=== PATIENT | male | born 1970 | race Caucasian/White ===

== ENCOUNTER 2021-11-18 18:20 | Inpatient (IN) | payer MEDICAID, SELFPAY ==
[2021-11-18 18:20] VITALS: BP 125/87; PULSE 93; RESP 14; TEMP 36.3; O2SAT 99; BMI 22.1
--- NOTE | 2021-11-18 18:44 | CT_ITS ---
We are attempting to reach an attending provider to discuss findings. An addendum with communication details will be sent when the communication is complete. INDICATION: ruq abd pain and weight loss EXAMINATION: CT ABDOMEN AND PELVIS WITH CONTRAST - CT Abdomen And Pelvis W/ Contrast Injection TECHNIQUE: Helically acquired images were obtained of the abdomen and pelvis following IV contrast. A radiation dose optimization technique was used for this scan. IV Contrast dosage and agent: 100 mL of ISOVUE-300 Oral contrast: None. COMPARISON: Right upper quadrant ultrasound from 09/17/2012. FINDINGS: LOWER CHEST: Lung bases are clear. No cardiomegaly or pericardial effusion. LIVER: Abnormal decreased density in the hilar region of the left hepatic lobe may represent focal fatty infiltration. More typical location for focal fatty infiltration in segment 4 liver is present. There appear to be traversing vessels making mass lesion less likely however further evaluation with right upper quadrant ultrasound is recommended. GALLBLADDER AND BILIARY TREE: No calcified gallstones. No gallbladder distension or wall edema. No definite intrahepatic biliary ductal dilation however abnormal low density left hepatic lobe in the region of the proximal bile ducts. PANCREAS: No focal cystic or solid mass. SPLEEN: Normal size without focal cystic or solid mass. ADRENAL GLANDS: No nodules. KIDNEYS, URETERS and BLADDER: Normal renal size and position. No mass. No hydronephrosis. Bladder is unremarkable. PERITONEUM: No ascites or free air. No other fluid collection. BOWEL: Stomach is abnormally distended as is the first portion of the duodenum with no obstructing mass visible. No surrounding inflammatory changes. More distal small bowel is collapsed. Small bowel loops are clustered in the right mid abdomen, upper quadrant region. No evidence of vascular congestion. LYMPH NODES: No enlarged mesenteric or retroperitoneal lymph nodes. VESSELS: Aorta is non-dilated. Right superior mesenteric vein lateralized position to the right of superior mesenteric artery. REPRODUCTIVE ORGANS: Is normal size prostate gland with calcifications noted. ABDOMINAL WALL: No discrete abdominal or pelvic wall hernia. BONES: No lytic or blastic abnormality. CT/Abdomen/Pelvis W IV Cont ONLY IMPRESSION: Distended stomach and proximal duodenum and abnormally clustered bowel loops in the right upper quadrant region as well as lateralization of the superior mesenteric artery suspicious for possible internal hernia; possible right paraduodenal hernia. Surgical consultation recommended. Area of decreased density in the periphery of the left hepatic lobe most likely representing fatty infiltration. Correlation with ultrasound is recommended to exclude mass lesion. Electronically Signed: Mario Lawson DO at 20:40 EDT ,
--- NOTE | 2021-11-18 18:45 | ED.VIS.GI ---
HPI HPI - GI History of Present Illness Chief Complaint: Abd Pain Informant: patient Abdominal Pain/Flank Pain Onset: Month(s) Context: Gradual Onset Timing: Intermittent Location: RUQ Current Severity: Mild Maximum Severity: Mild Worsened by: Food Relieved by: Nothing Nausea/Vomiting/Emesis GI Symptom: Positive for Nausea and Vomiting Onset: Weeks Severity: Mild Diarrhea/Melena/Hematochezia GI Symptom: Positive for Diarrhea; Negative for Melena or Hematochezia Onset: Days Stool Quality: Positive for Loose Severity: Mild Associated Symptoms Associated Symptoms: Negative for Dysuria, Frequency, Hematuria or Urgency Narrative Narrative: 16-year-old male no seen past medical history. Prior appendectomy years ago. Since her last 2 months he has had abdominal pain. Primarily right upper quadrant when he eats. He gets bloated. He is nausea vomiting. Last few days he is also had some mild diarrhea. No melena. No hematemesis. No fever. No dysuria. States he is also had a 30 pound weight loss. His sisters both had to gallbladders out around this age. He has had no significant work-up for it he has a pending outpatient CAT scan at another facility. Prior similar symptoms: Yes Recent Illness/Hospitalization: No PFSH PFSH Medical History no medical history no medical history Home Medications acetaminophen 500 mg capsule 1,000 mg PO Q6H PRN Pain 11/18/21 [History Last Taken Unknown] polyethylene glycol 3350 17 gram oral powder packet (Miralax) 17 g PO DAILY 11/18/21 [History Last Taken Unknown] Allergy/AdvReac Type Severity Reaction Status Date / Time No Known Allergies Allergy Verified 11/18/21 18:22 Surgical History Hx of appendectomy Social History Smoking Status: Former smoker ROS ROS ED ROS Narrative Nausea, vomiting, diarrhea, abdominal pain and weight loss. Review of Systems ROS Unobtainable: Denies due to encephalopathy Constitutional Constitutional ED: Denies chills ENT ENT ED: Denies ear pain Cardiovascular Cardiovascular: Denies chest pain Respiratory/Chest Respiratory/Chest: Denies cough Gastrointestinal Gastrointestinal: Reports abdominal pain, diarrhea, nausea and vomiting; Denies constipation or melena Genitourinary Genitourinary ED: Denies dysuria or hematuria Musculoskeletal Musculoskeletal: Denies arthralgias Integumentary Denies abscess Neurologic Neurologic: Denies headache(s) Psychiatric Psychiatric: Denies anxiety Endocrine Endocrinology: Denies polydipsia Hematologic/Lymphatic Hematologic/Lymphatic: Denies easy bleeding Allergic/Immunologic Allergic/Immunologic ED: Denies mouth swelling EXAM Physical Exam Narrative Exam Narrative: 51-year-old male no acute distress vital signs stable afebrile. HEENT exam unremarkable. Neck nontender. Lungs are clear. Heart regular rhythm no murmur. Abdomen soft nondistended normal bowel sounds no peritoneal signs. No CVA tenderness. No hernia or mass. No distention. Moving all 4 extremities. Back nontender. Neurologically is awake alert. Benign exam. Const Vital Signs: 11/18/21 18:20 11/18/21 21:08 Temperature 97.3 F L Temperature Source Temporal Pulse Rate 93 73 Respiratory Rate 14 16 Blood Pressure 125/87 H 104/70 Blood Pressure Mean 99 81 Pulse Ox 99 98 Oxygen Delivery Method Room Air Room Air Positive well nourished and well developed; Negative for obese, cachectic, contractures or unkempt General Appearance ED: well developed; Negative for unkempt, cachectic, contractures or pallor Nutritional Appearance: Negative for cachectic or obese HEENT Reports moist mucous membranes normocephalic and atraumatic; Negative for trauma or tenderness Eyes PERRL and EOMs intact bilaterally General Eye ED: Negative for pale conjunctiva or scleral icterus Neck no lymphadenopathy, supple and no JVD General: Negative for tenderness Lymph Lymphatic: Negative for other Resp normal respiratory effort and clear to auscultation bilaterally Effort and Inspection: respiratory distress; Negative for retractions or pain with movement Auscultation: Negative for rales, rhonchi or wheezes Cardio regular rate, regular rhythm, S1 normal heart sound, S2 normal heart sound and no murmurs Rate: Negative for bradycardia Rhythm: Negative for abnormal rhythm GI non-tender, non-distended and no masses Inspection: Negative for abdominal distention Auscultation: normoactive bowel sounds Palpation: soft; Negative for tender, guarding, rigid, hepatomegaly, splenomegaly, hernia or mass Back/Spine no CVA tenderness General Back: Negative for CVA tenderness Cervical Spine: Negative for cervical spine tenderness Thoracic Spine / Upper Back: Negative for thoracic spinal tenderness Lumbar Spine / Lower Back: Negative for lumbar spinal tenderness Extremity full ROM General Extremety ED: Negative for edema or tenderness General Extremity: Negative for edema Neuro CN's II-XII intact bilaterally and moves all extremities Sensorium / Orientation: alert Motor Exam: strength 5/5 throughout Psych Appearance: Negative for unkempt Attitude: No agitated Mood & Affect: Negative for depressed or anxious Skin no wounds General Skin Exam: Negative for jaundice or pallor Lesions: no lesions Rashes: no rashes Trauma: Negative for abrasion Nails: Negative for discolored MDM MDM MDM Narrative Medical decision making narrative: 51-year-old male with 2-month history of right upper quadrant abdominal pain primarily postprandial with nausea vomiting. Also diarrhea. CAT scan labs are pending. Clinically, I think this may be his gallbladder. He did not want any nausea or pain medication at this time. Repeat exam patient is doing well. He had I discussed his test results primarily his CAT scan which may be secondary to gastric outlet obstruction or an internal hernia or some other etiology. I work spoke with general surgery on-call Dr. Mario Miller and he will be in to evaluate the patient and determine if the patient will stay here for admission and further work-up or be transferred to another facility. Patient is currently doing well. He is stable at [address] Mario Miller came and evaluated patient. Patient will be admitted to the hospitalist Dr. Esther Robbins and they can consult GI. Patient undergo further evaluation to try to determine the cause of his gastric distention whether its gastric outlet obstruction, a potential mass or an internal hernia is to be determined. Patient is aware and comfortable to plan. Lab Data Attestation: I reviewed the patient's lab results. Lab results narrative: CBC normal white count 7. H&H 15 and 44. Electrolytes sodium 134 potassium 3.2. Gap 11. BUN of 20 creatinine 0.9. Liver enzymes normal. Lipase normal at 305. Urinalysis ketones otherwise negative. Labs: Laboratory Results - last 24 hr 11/18/21 11/18/21 11/18/21 18:40 18:40 Unknown WBC 7.5 RBC 5.25 Hgb 15.3 Hct 44.6 MCV 85.0 MCH 29.1 MCHC 34.3 RDW Std Deviation 36.9 RDW Coeff of Caden 12.0 Plt Count 281 MPV 9.5 Immature Gran % (Auto) 0.400 Neut % (Auto) 52.8 Lymph % (Auto) 35.8 [place] % (Auto) 8.6 Eos % (Auto) 2.1 Baso % (Auto) 0.3 Absolute Neuts (auto) 4.0 Absolute Lymphs (auto) 2.68 Nucleated RBC % 0 Sodium 134 L Potassium 3.2 L Chloride 91 L Carbon Dioxide 32.0 Anion Gap 11 BUN 20 H Creatinine 0.95 Estim Creat Clear Calc 89.53 Est GFR (MDRD) Af Amer 107 Est GFR (MDRD) Non-Af 89 BUN/Creatinine Ratio 21.0 H Glucose 98 Calcium 9.8 Total Bilirubin 0.50 AST 26 ALT 35 Alkaline Phosphatase 59 Total Protein 8.1 Albumin 4.2 Globulin 3.9 Albumin/Globulin Ratio 1.1 Lipase 305 Urine Color Yellow Urine Clarity Clear Urine pH 6.0 Ur Specific [place] 1.020 Urine Protein 15 H Urine Glucose (UA) Normal Urine Ketones 150 A* Urine Occult Blood 10 H Urine Nitrite Negative Urine Bilirubin Negative Urine Urobilinogen Normal Ur Leukocyte Esterase 25 H Urine RBC 0 SEEN Urine WBC 0-5 SEEN Ur Squamous Epith Cells 0 SEEN Urine Bacteria 1+ Urine Mucus 0 SEEN Radiography Diagnostic Testing: Clinical Impression(s) from Imaging Studies Abdomen/Pelvis CT 11/18/21 18:44 IMPRESSION: Distended stomach and proximal duodenum and abnormally clustered bowel loops in the right upper quadrant region as well as lateralization of the superior mesenteric artery suspicious for possible internal hernia; possible right paraduodenal hernia. Surgical consultation recommended. Area of decreased density in the periphery of the left hepatic lobe most likely representing fatty infiltration. Correlation with ultrasound is recommended to exclude mass lesion. Electronically Signed: Mario Lawson DO at 20:40 EDT , ADDENDUM: 11/18/212058 IMPRESSION: Distended stomach and proximal duodenum and abnormally clustered bowel loops in the right upper quadrant region as well as lateralization of the superior mesenteric artery suspicious for possible internal hernia; possible right paraduodenal hernia. Surgical consultation recommended. Area of decreased density in the periphery of the left hepatic lobe most likely representing fatty infiltration. Correlation with ultrasound is recommended to exclude mass lesion. N.B. : The above Results were Read Back by Mario Lawson DO to DAYANA Laird, and understanding confirmed on 11/18/2021 20:53:02 (ET). Electronically Signed: Mario Lawson DO at 20:40 EDT , Discharge Plan Dx/Rx/DC Orders Clinical Impression: Abdominal pain, Abnormal weight loss, Vomiting, Gastric outlet obstruction Disposition Disposition: Acute Care Hospital [facility]
[2021-11-18] MEDS: 0.9% Normal Saline 1,000 ML 1000 ML IV (18:50)
[2021-11-18 18:52] LABS: Absolute Lymphocyte Count 2.68 X10^3/uL (0.83-4.51); Basophil# 0.02 X10^3/uL; Basophil% 0.3 % (0-1); Eosinophil# 0.16 X10^3/uL; Eosinophils% 2.1 % (0-5); Hematocrit 44.6 % (40-54); Hemoglobin 15.3 g/dL (13.0-16.5); Lymphocyte # 2.68 X10^3/ul (0.83-4.51); Lymphocyte % 35.8 % (19-41); Mean Corp Hgb Conc 34.3 g/dL (32-36); Mean Corpuscular Hgb 29.1 pg (27.0-32.0); Mean Platelet Vol. 9.5 fl (6.2-12.0); Monocyte# 0.64 X10^3/uL; Monocyte% 8.6 % (0-10); NRBC Flagged by Analyzer 0 % (0-5); Neutrophil # 3.95 X10^3/uL (2.7-7.7); Neutrophil % 52.8 % (47-70); Platelet Count 281 K/mm3 (150-450); RBC Distribution Width SD 36.9 fl (35.1-43.9); Red Blood Count 5.25 M/mm3 (4.6-6.2); White Blood Count 7.5 K/mm3 (4.4-11.0)
[2021-11-18 19:09] LABS: ALB/GLOB Ratio 1.1 RATIO (0.9-2.4); AST(SGOT) 26 U/L (15-37); Alanine Aminotransfer ALT/SGPT 35 U/L (16-61); Albumin, Serum 4.2 g/dL (3.2-5.0); Alkaline Phosphatase 59 U/L (45-117); Anion Gap 11 (5-15); BUN 20 mg/dL (7-18); Calcium,Total 9.8 mg/dL (8.5-10.1); Chloride 91 mmol/L (98-107); Creatinine, Serum 0.95 mg/dL (0.70-1.30); EST Glomerular Filtration Rate 89 mL/min (>60); Est Glom Filt Rate - Afr Amer 107 mL/min (>60); Estimated Creatinine Clearance 89.53 ml/min; Globulin 3.9 g/dL (2.2-4.2); Glucose 98 mg/dL (74-106); Lipase 305 U/L (73-393); Potassium 3.2 mmol/L (3.5-5.1); Protein, Total 8.1 g/dL (6.4-8.2); Sodium Level 134 mmol/L (136-145)
[2021-11-18 19:44] LABS: Mucous, Urine 0 SEEN /hpf (<or=2+); Red Blood Cells-Urine 0 SEEN /hpf (0-5); Squamous Epithelial Cells - UA 0 SEEN /hpf (0-5)
[2021-11-18 19:49] LABS: Glucose, Dipstick Normal (Normal); Leukocyte Esterase-Dipstick 25 /ul (Negative); Nitrite-Dipstick Negative (Negative); Occult Blood-Urine 10 /ul (Negative); Protein-Dipstick 15 mg/dl (Negative); Urine Bilirubin Dipstick Negative (Negative); Urine Clarity Clear (Clear); Urine Urobilinogen Normal (Normal)
[2021-11-18 19:50] LABS: Color, Urine Yellow (Yellow)
[2021-11-18 19:52] LABS: Ketone-Dipstick 150 mg/dl (Negative)
[2021-11-18 20:07] LABS: Bacteria 1+ /hpf (None Seen); White Blood Cells 0-5 SEEN /hpf (0-5)
[2021-11-18 21:08] VITALS: BP 104/70; PULSE 73; RESP 16; O2SAT 98
--- NOTE | 2021-11-18 22:18 | PCM.HP.STD ---
HPI - General General Date of Admission: 11/18/21 Date of Service: 11/18/21 Chief Complaint: N,V, postprandial abdominal pain, 30 lb weight loss. HPI Narrative The patient is a 51 y/o M w/ PMHx: Former tobacco use, GERD, Hx Migraines who presents to the [facility] ED on 11/18/21 with history of intractable nausea, emesis, abdominal discomfort worse in the RUQ noted to be primarily postprandial described as cramping, 10/10 in severity pain with 30 lb weight loss x 2 months with per report family members with issues with GB with planned follow-up for c-scope 01/04/[address] Carbajal and [address] this coming week Monday arranged per his [employer] at [place]; however, given ongoing symptoms prompted ED evaluation. He notes that his last bowel movement was on day of presentation and was pudding-like in nature and yellow in appearance which has been ongoing since decreased oral intake and limited to certain types of clear liquids only. He notes that depending on which way he lies he has worsened nausea and emesis. Work-up in the ED included T97.3, heart rate 93, BP 125/87, respiratory rate 14, 99% on room air, CBC with WC 7.5, hemoglobin 15.3, platelet 281 without marked shift, CMP with sodium 134, potassium 3.2, chloride 91, BUN/creatinine 20/0.95 otherwise hepatic profile unremarkable, lipase 305, urinalysis with evidence of dehydration with elevated specific gravity 1.020, protein 15, ketones 150, occult blood 10, negative nitrite, leukocyte Estrace 25, 0 urine RBC, 0 urine WC, 1+ urine bacteria, distended stomach and proximal duodenum and abnormally clustered bowel loops in the right upper quadrant region as well as lateralization of the superior mesenteric artery suspicious for possible internal hernia; possible right paraduodenal hernia, area of decreased density in the periphery of the left hepatic lobe most likely representing fatty infiltration. ED physician discussed case with general surgery, Dr. Miller who evaluated the patient in the ED and requested placement of NG tube as well as CA-19-9 to be obtained in addition to a gastroenterology consultation. In the ED patient ministered normal saline bolus. [facility] Medical History (Updated 11/18/21 @ 22:[address] Esther Robbins MD) Former tobacco use GERD (gastroesophageal reflux disease) History of migraine headaches Medical History no medical history Home Medications acetaminophen 500 mg capsule 1,000 mg PO Q6H PRN Pain 11/18/21 [History Last Taken Unknown] dicyclomine 20 mg tablet tab 11/18/21 [History Last Taken Unknown] famotidine 20 mg tablet tab 11/18/21 [History Last Taken Unknown] omeprazole 20 mg capsule,delayed release cap 11/18/21 [History Last Taken Unknown] polyethylene glycol 3350 17 gram oral powder packet (Miralax) 17 g PO DAILY 11/18/21 [History Last Taken Unknown] Allergy/AdvReac Type Severity Reaction Status Date / Time No Known Allergies Allergy Verified 11/18/21 18:22 Family History (Updated 11/18/21 @ 22:[address] Esther Robbins MD) Sister Cholelithiasis NOS Sister x 2 with GB disease, unclear specific type. Father Cholelithiasis NOS Had gallbladder disease, was supposed to have cholecystectomy but had sudden CO with cardiac age 62. Myocardial infarction CO, age 63. Hypertension Heart disease other (No marked maternal family history including HD, DM, CA.) Surgical History Hx of appendectomy Social History (Updated 11/18/21 @ 22:[address] Esther Robbins MD) household members: spouse and children Smoking Status: Former smoker how long ago did patient quit smoking: Quit ~ 15 yrs ago, smoked 1 ppd since teen until quit. alcohol intake: never substance use type: does not use ROS ROS Narrative Admission Review of Systems: CONSTITUTIONAL: No fever, chills, + weakness or fatigue, weight loss. HEENT: Eyes: No visual loss, blurred vision, double vision or yellow sclerae. Ears, Nose, Throat: No hearing loss, sneezing, congestion, runny nose or sore throat. SKIN: No rash or itching, lesions, wounds. CARDIOVASCULAR: No chest pain, chest pressure or chest discomfort, palpitations, edema, orthopnea, syncopal events. RESPIRATORY: No shortness of breath, cough or sputum, wheezing, hemoptysis. GASTROINTESTINAL: + anorexia, nausea, vomiting, abdominal pain, soft stools, No melena, BRBPR. GENITOURINARY: No dysuria, frequency, urgency or retention. NEUROLOGICAL: No headache, dizziness, syncope, paralysis, ataxia, numbness or tingling in the extremities, focal weakness, change in bowel or bladder control, seizure. MUSCULOSKELETAL: No muscle, back pain, joint pain or stiffness. HEMATOLOGIC: No anemia, bleeding or bruising. LYMPHATICS: No enlarged nodes. No history of splenectomy. PSYCHIATRIC: No history of depression or anxiety. ENDOCRINOLOGIC: No reports of sweating, cold or heat intolerance. No polyuria or polydipsia. ALLERGIES: No history of asthma, hives, eczema or rhinitis. Vital Signs Vital Signs Vital Signs: 11/18/21 18:20 11/18/21 21:08 Temperature 97.3 F L Temperature Source Temporal Pulse Rate 93 73 Respiratory Rate 14 16 Blood Pressure 125/87 H 104/70 Blood Pressure Mean 99 81 Pulse Ox 99 98 Oxygen Delivery Method Room Air Room Air Weight Weight: 150 lb Body Mass Index (BMI) 22.1 Physical Exam Narrative Physical Examination: General: Awake, alert, oriented x 3 and cooperative, seated upright in the ED bed, no acute distress Skin: Normal color, normal turgor, no icterus, no cyanosis. HEENT: AT/NC, EOMI, PERRLA, dry MM, no carotid bruits or JVD noted. Lungs: Mild diminished, greater bases, appropriate effort, no rales, ronchi or wheezing. Heart: Currently regular rate and rhythm; no gallop, rub audible. Abdomen: Soft, mild discomfort to right upper quadrant and epigastric region palpation, no rebound or guarding, no obvious marked distention, extremely hypoactive bowel sounds diffusely, no obvious HSM. Extremities: No cyanosis, clubbing, or edema. Neurological: Patient awake, alert, oriented as noted, cognitive function intact; pupils equally reactive to light and accommodation, cranial nerves II-XII grossly normal, moving all 4 extremities, no focal deficits, strength mildly globally Laurie secondary to acute presentation complaints Psychiatric: Affect appears fatigued otherwise normal, no acute evidence of depressive or anxiety feelings. Results Lab / Micro Data Result Diagrams: 11/18/21 18:40 11/18/21 18:40 Labs: Laboratory Results - last 24 hr 11/18/21 18:40: WBC 7.5, RBC 5.25, Hgb 15.3, Hct 44.6, MCV 85.0, MCH 29.1, MCHC 34.3, RDW Std Deviation 36.9, RDW Coeff of Caden 12.0, Plt Count 281, MPV 9.5, Immature Gran % (Auto) 0.400, Neut % (Auto) 52.8, Lymph % (Auto) 35.8, [place] % (Auto) 8.6, Eos % (Auto) 2.1, Baso % (Auto) 0.3, Absolute Neuts (auto) 4.0, Absolute Lymphs (auto) 2.68, Nucleated RBC % 0 11/18/21 18:40: Sodium 134 L, Potassium 3.2 L, Chloride 91 L, Carbon Dioxide 32.0, Anion Gap 11, BUN 20 H, Creatinine 0.95, Estim Creat Clear Calc 89.53, Est GFR (MDRD) Af Amer 107, Est GFR (MDRD) Non-Af 89, BUN/Creatinine Ratio 21.0 H, Glucose 98, Calcium 9.8, Total Bilirubin 0.50, AST 26, ALT 35, Alkaline Phosphatase 59, Total Protein 8.1, Albumin 4.2, Globulin 3.9, Albumin/Globulin Ratio 1.1, Lipase 305 11/18/21 : Urine Color Yellow, Urine Clarity Clear, Urine pH 6.0, Ur Specific [place] 1.020, Urine Protein 15 H, Urine Glucose (UA) Normal, Urine Ketones 150 A*, Urine Occult Blood 10 H, Urine Nitrite Negative, Urine Bilirubin Negative, Urine Urobilinogen Normal, Ur Leukocyte Esterase 25 H, Urine RBC 0 SEEN, Urine WBC 0-5 SEEN, Ur Squamous Epith Cells 0 SEEN, Urine Bacteria 1+, Urine Mucus 0 SEEN Radiology Impression Abdomen/Pelvis CT 11/18/21 18:44 IMPRESSION: Distended stomach and proximal duodenum and abnormally clustered bowel loops in the right upper quadrant region as well as lateralization of the superior mesenteric artery suspicious for possible internal hernia; possible right paraduodenal hernia. Surgical consultation recommended. Area of decreased density in the periphery of the left hepatic lobe most likely representing fatty infiltration. Correlation with ultrasound is recommended to exclude mass lesion. Electronically Signed: Mario Lawson DO at 20:40 EDT , ADDENDUM: 11/18/212058 IMPRESSION: Distended stomach and proximal duodenum and abnormally clustered bowel loops in the right upper quadrant region as well as lateralization of the superior mesenteric artery suspicious for possible internal hernia; possible right paraduodenal hernia. Surgical consultation recommended. Area of decreased density in the periphery of the left hepatic lobe most likely representing fatty infiltration. Correlation with ultrasound is recommended to exclude mass lesion. N.B. : The above Results were Read Back by Mario Lawson DO to DAYANA Laird, and understanding confirmed on 11/18/2021 20:53:02 (ET). Electronically Signed: Mario Lawson DO at 20:40 EDT , Assessment & Plan Assessment/Plan (1) Abdominal pain: PLAN: Plan The patient is a 51 y/o M w/ PMHx: Former tobacco use, GERD, Hx Migraines who presents to the [facility] ED on 11/18/21 with history of intractable nausea, emesis, abdominal discomfort worse in the RUQ noted to be primarily postprandial described as cramping, 10/10 in severity pain with 30 lb weight loss x 2 months. #1. Abdominal pain, intractable nausea, emesis of unclear etiology, possibly internal hernia, possibly gastric outlet obstruction, possible gallbladder disease of uncertain specific type with associated Severe Protein-Calorie Malnutrition: Will admit to medical surgical floor, maintain on IVFs, NG tube being placed in the ED per surgery request and will continue NGT to suction, strict I&Os, IV pain/anti-emetics PRN, serial KUB as needed to montior bowel function, maintain on PPI IV, maintain NPO on bowel rest. General surgery consulted and following. Gastroenterology also consulted and as discussed with Dr. Miller he will review case with Dr. Turcios and they will decide on best course. Nutrition consulted given prolonged decreased intake and significant weight loss. #2. Former tobacco usage: Encourage continued tobacco cessation. #3. GERD: As noted we will maintain on IV PPI. #4. History of migraines: Patient notes that he previously was on routine usage of Excedrin, has not used these in quite some time and denies any recent migraines. #5. DVT prophylaxis: SCDs, defer chemoprophylaxis as possible intervention in a.m. Charges/Coding Visit Charges Inpatient E&M: 44175 Init Hosp L2
[2021-11-18] MEDS: Oxymetazoline 0.05% 1 SPRAY SPRAY.BTL 2 SPRAY NASAL (22:23)
--- NOTE | 2021-11-18 22:25 | CON.PCM.SX_ITS ---
Assessment & Plan Assessment/Plan (1) Gastric outlet obstruction: (2) Abnormal findings on diagnostic imaging of abdomen: (3) Gastric distention: (4) Abdominal pain: (5) Abnormal weight loss: (6) Vomiting: PLAN: Plan This is a 51-year-old male who presents with 2-month history of abdominal pain, early satiety, nausea, vomiting, approximately 30 pound weight loss, constipation, and what sound like acholic stools. CT imaging is concerning for functional gastric outlet obstruction, however, this is qualified that the obstruction seems to be at the transition between the second and third portions of the duodenum. Radiology has read this as concerning for possible paraduodenal versus internal hernia. This would not seem to be possible as the patient has only had prior appendectomy as his surgical history and therefore there should be no mesenteric defect through which a internal hernia could occ ur. My independent review of the imaging patient appears to have an abrupt transition at the junction of the second and third portions of the duodenum with the latter part of the duodenum wrapping behind the gastric antrum in the lesser sac and then into the right side of the abdomen causing the lateralization of the superior mesenteric artery. Importantly there is not a complete 360 degree swirl of these mesenteric vessels as would be seen with a internal hernia. Additionally, patient's abdominal exam is benign and he displays no acute distress. At this time I shared with him that I am concerned for possible neoplastic process and further work-up is warranted. To facilitate this work-u p, I have recommended placement of a nasogastric tube for decompression as this would likely facilitate both a upper endoscopy as well as any additional advanced imaging. I have also recommended gastroenterology consultation for assistance with this work-up. Given the suspicion for a neoplastic process I have recommended obtaining CEA and CA 19-9 levels. HPI Consult Data Date of Consult: 11/18/21 HPI Narrative Reason for Consultation: Abnormal CT- concern for gastric outlet obstruction vs internal hernia HPI Narrative: MARIO FERNANDEZ, is a 51, otherwise healthy, M who presents to [facility] with complaints of 2 months abdominal pains, early satiety, and nausea vomiting. He also reports a more recent development of constipation and yellow stools. He states that he was seen approximately 1 month ago for the symptoms at [facility] where an ultrasound was performed of the right upper quadran t and he was informed no abnormalities were seen and was discharged home. When his symptoms persisted he presented to his primary care provider who referred him to a licensed journeyman electrician in [place]. He states he met with that licensed journeyman electrician on 11/15/2021 and was scheduled for a EGD on 01/04/2022. However, he has lost approximately 30 pounds since the symptoms began and felt that further delay would be detrimental to his health so he decided to present this evening. ER work-up was notable for pertinent negatives with no leukocytosis and normal LFTs/bilirubin. However, CT of the abdomen pelvis was markedly abnormal demonstrating a severely distended stomach and proximal duodenum with concern from radiology for possible internal hernia versus paraduodenal hernia and surgical consultation was recommended. Notably, patient's only past surgical history is for an open appendectomy done as a child. He reports that he is now feeling better after vomiting in our ER. He states that this vomitus consisted simply of the food that he had taken in earlier. PFSH Medical History no medical history Home Medications acetaminophen 500 mg capsule 1,000 mg PO Q6H PRN Pain 11/18/21 [History Last Taken Unknown] dicyclomine 20 mg tablet tab 11/18/21 [History Last Taken Unknown] famotidine 20 mg tablet tab 11/18/21 [History Last Taken Unknown] omeprazole 20 mg capsule,delayed release cap 11/18/21 [History Last Taken Unknown] ondansetron HCl 4 mg tablet 4 mg PO Q6H PRN PRN Nausea 11/18/21 [History Last Taken Unknown] polyethylene glycol 3350 17 gram oral powder packet (Miralax) 17 g PO DAILY 11/18/21 [History Last Taken Unknown] Allergy/AdvReac Type Severity Reaction Status Date / Time No Known Allergies Allergy Verified 11/18/21 18:22 Family History (Updated 11/18/21 @ 22:[address] Esther Robbins MD) Sister Cholelithiasis NOS Sister x 2 with GB disease, unclear specific type. Father Cholelithiasis NOS Had gallbladder disease, was supposed to have cholecystectomy but had sudden [place] with cardiac age 63. Myocardial infarction [place], age 63. Hypertension Heart disease Family History other Surgical History Hx of appendectomy Social History household members: spouse and children Smoking Status: Former smoker how long ago did patient quit smoking: Quit ~ 15 yrs ago, smoked 1 ppd since te en until quit. alcohol intake: never substance use type: does not use Physical Exam Const alert and oriented x3 General Appearance: cooperative Resp normal respiratory effort GI GI Narrative: Nondistended, no visible scars, no herniation. Soft, very mildly tender to palpation in the right upper quadrant. Lab / Micro Data Result Diagrams: 11/18/21 18:40 11/18/21 18:40 Labs: Laboratory Results - last 24 hr 11/18/21 18:40: WBC 7.5, RBC 5.25, Hgb 15.3, Hct 44.6, MCV 85.0, MCH 29.1, MCHC 34.3, RDW Std Deviation 36.9, RDW Coeff of Caden 12.0, Plt Count 281, MPV 9.5, Immature Gran % (Auto) 0.400, Neut % (Auto) 52.8, Lymph % (Auto) 35.8, [place] % (Auto) 8.6, Eos % (Auto) 2.1, Baso % (Auto) 0.3, Absolute Neuts (auto) 4.0, Absolute Lymphs (auto) 2.68, Nucleated RBC % 0 11/18/21 18:40: Sodium 134 L, Potassium 3.2 L, Chloride 91 L, Carbon Dioxide 32.0, Anion Gap 11, BUN 20 H, Creatinine 0.95, Estim Creat Clear Calc 89.53, Est GFR (MDRD) Af Amer 107, Est GFR (MDRD) Non-Af 89, BUN/Creatinine Ratio 21.0 H, Glucose 98, Calcium 9.8, Total Bilirubin 0.50, AST 26, ALT 35, Alkaline Phosphatase 59, Total Protein 8.1, Albumin 4.2, Globulin 3.9, Albumin/Globulin Ratio 1.1, Lipase 305 11/18/21 : Urine Color Yellow, Urine Clarity Clear, Urine pH 6.0, Ur Specific [place] 1.020, Urine Protein 15 H, Urine Glucose (UA) Normal, Urine Ketones 150 A*, Urine Occult Blood 10 H, Urine Nitrite Negative, Urine Bilirubin Negative, Urine Urobilinogen Normal, Ur Leukocyte Esterase 25 H, Urine RBC 0 SEEN, Urine WBC 0-5 SEEN, Ur Squamous Epith Cells 0 SEEN, Urine Bacteria 1+, Urine Mucus 0 SEEN Radiology Impression Abdomen/Pelvis CT 11/18/21 18:44 IMPRESSION: Distended stomach and proximal duodenum and abnormally clustered bowel loops in the right upper quadrant region as well as lateralization of the superior mesenteric artery suspicious for possible internal hernia; possible right paraduodenal hernia. Surgical consultation recommended. Area of decreased density in the periphery of the left hepatic lobe most likely representing fatty infiltration. Correlation with ultrasound is recommended to exclude mass lesion. Electronically Signed: Mario Lawson DO at 20:40 EDT , ADDENDUM: 11/18/212058 IMPRESSION: Distended stomach and proximal duodenum and abnormally clustered bowel loops in the right upper quadrant region as well as lateralization of the superior mesenteric artery suspicious for possible internal hernia; possible right paraduodenal hernia. Surgical consultation recommended. Area of decreased density in the periphery of the left hepatic lobe most likely representing fatty infiltration. Correlation with ultrasound is recommended to exclude mass lesion. N.B. : The above Results were Read Back by Mario Lawson DO to Dr. Rafiq Gomez, AA, and understanding confirmed on 11/18/2021 20:53:02 (ET). Electronically Signed: Mario Lawson DO at 20:40 EDT ,
[2021-11-18 22:47] LABS: Magnesium 2.3 mg/dL (1.6-2.6); Phosphorus 3.8 mg/dL (2.5-4.9)
[2021-11-18 22:50] VITALS: BMI 22.4
[2021-11-18 23:09] VITALS: BP 106/73; PULSE 102; RESP 16; TEMP 36.6; O2SAT 99
[2021-11-18] MEDS: 0.9% Normal Saline 1,000 ML 125 ML IV (23:16)
[2021-11-18] MEDS: 0.9% Saline Lock 10 ML Syringe IV (23:16)
[2021-11-19] VITALS (10 sets, daily range): BP systolic 90–106; BP diastolic 43–73; PULSE 50–68; RESP 16–18; TEMP 36.4–36.9; O2SAT 96–100
--- NOTE | 2021-11-19 00:12 | ED.RN ---
Patient taken to floor before NG tube placed. Floor notified and Afrin tubed to floor.
--- NOTE | 2021-11-19 05:55 | RAD_ITS ---
STUDY: X-RAY - ABDOMEN/PELVIS REASON FOR EXAM: Male, 51 years old. Abdominal pain, NGT in place TECHNIQUE: Single AP view of the abdomen / pelvis. COMPARISON: None. FINDINGS: Normal visualized lung bases. There is an unremarkable bowel gas pattern. No nasogastric tube is visualized. Contrast is seen within the bladder from a recent CT scan of the abdomen and pelvis. Normal soft tissue structures. Normal visualized osseous structures. RAD/Abdomen Single View (Portable) IMPRESSION: Normal x-ray examination of the abdomen and pelvis. Electronically Signed: Jacob Salazar MD at 8:10 EDT ,
[2021-11-19 06:01] LABS: Absolute Lymphocyte Count 2.66 X10^3/uL (0.83-4.51); Absolute Neutrophil Count 3.5 X10^3/uL (2.0-7.7); Basophil# 0.02 X10^3/uL; Basophil% 0.3 % (0-1); Eosinophil# 0.14 X10^3/uL; Eosinophils% 2.1 % (0-5); Hematocrit 40.5 % (40-54); Hemoglobin 13.6 g/dL (13.0-16.5); Lymphocyte # 2.66 X10^3/ul (0.83-4.51); Lymphocyte % 39.1 % (19-41); Mean Corp Hgb Conc 33.6 g/dL (32-36); Mean Corpuscular Hgb 29.2 pg (27.0-32.0); Mean Corpuscular Volume 86.9 fL (80-94); Mean Platelet Vol. 9.6 fl (6.2-12.0); Monocyte# 0.48 X10^3/uL; NRBC Flagged by Analyzer 0 % (0-5); Neutrophil # 3.49 X10^3/uL (2.7-7.7); Neutrophil % 51.2 % (47-70); Platelet Count 248 K/mm3 (150-450); RBC Distribution Width SD 38.4 fl (35.1-43.9); Red Blood Count 4.66 M/mm3 (4.6-6.2); White Blood Count 6.8 K/mm3 (4.4-11.0)
[2021-11-19 06:30] LABS: AST(SGOT) 20 U/L (15-37); Alanine Aminotransfer ALT/SGPT 28 U/L (16-61); Albumin, Serum 3.3 g/dL (3.2-5.0); Alkaline Phosphatase 46 U/L (45-117); Anion Gap 11 (5-15); BUN 13 mg/dL (7-18); BUN/Creat Ratio 16.8 RATIO (10-20); Calcium,Total 8.6 mg/dL (8.5-10.1); Chloride 100 mmol/L (98-107); Creatinine, Serum 0.78 mg/dL (0.70-1.30); EST Glomerular Filtration Rate 113 mL/min (>60); Est Glom Filt Rate - Afr Amer 136 mL/min (>60); Estimated Creatinine Clearance 110.64 ml/min; Globulin 3.2 g/dL (2.2-4.2); Glucose 81 mg/dL (74-106); Potassium 3.5 mmol/L (3.5-5.1); Protein, Total 6.5 g/dL (6.4-8.2); Sodium Level 137 mmol/L (136-145)
[2021-11-19] MEDS: 0.9% Normal Saline 1,000 ML 125 ML IV (06:32)
--- NOTE | 2021-11-19 07:54 | PCM.PN.SRG ---
Subjective Subjective Patient seen and examined during AM rounds. He appears a bit anxious and states that there is difficulty with placing his nasogastric tube overnight. He states that there is some bleeding and the tube did not seem to want to pass despite him trying to swallow it down to the best of his ability. He offers that he is open to having his stomach aspirated and he points through his abdominal wall. He states that there has been a lot of gurgling, but that his pain is no worse this morning. Objective Data Objective Data Vital Signs: Vital Signs Temp Pulse Resp BP Pulse Ox O2 Del Method 98.5 F 67 16 97/62 98 Room Air 11/19/21 06:36 11/19/21 06:36 11/19/21 06:36 11/19/21 06:36 11/19/21 06:36 11/19/21 07:43 Oxygen Delivery Method Room Air Weight: 152 lb 3.2 oz Body Mass Index (BMI) 22.4 Intake & Output: Intake and Output for Last 24 Hours 11/17/21 11/18/21 11/19/21 23:59 23:59 23:59 Intake Total 1110 / 1110 866.67 / 866.67 Balance 1110 / 1110 866.67 / 866.67 Lab / Micro Data Result Diagrams: 11/19/21 05:35 11/19/21 05:35 Labs: Laboratory Results - last 24 hr 11/18/21 18:40: WBC 7.5, RBC 5.25, Hgb 15.3, Hct 44.6, MCV 85.0, MCH 29.1, MCHC 34.3, RDW Std Deviation 36.9, RDW Coeff of Caden 12.0, Plt Count 281, MPV 9.5, Immature Gran % (Auto) 0.400, Neut % (Auto) 52.8, Lymph % (Auto) 35.8, [place] % (Auto) 8.6, Eos % (Auto) 2.1, Baso % (Auto) 0.3, Absolute Neuts (auto) 4.0, Absolute Lymphs (auto) 2.68, Nucleated RBC % 0 11/18/21 18:40: Sodium 134 L, Potassium 3.2 L, Chloride 91 L, Carbon Dioxide 32.0, Anion Gap 11, BUN 20 H, Creatinine 0.95, Estim Creat Clear Calc 89.53, Est GFR (MDRD) Af Amer 107, Est GFR (MDRD) Non-Af 89, BUN/Creatinine Ratio 21.0 H, Glucose 98, Calcium 9.8, Total Bilirubin 0.50, AST 26, ALT 35, Alkaline Phosphatase 59, Total Protein 8.1, Albumin 4.2, Globulin 3.9, Albumin/Globulin Ratio 1.1, Lipase 305 11/18/21 18:40: Phosphorus 3.8, Magnesium 2.3 11/18/21 : Urine Color Yellow, Urine Clarity Clear, Urine pH 6.0, Ur Specific [place] 1.020, Urine Protein 15 H, Urine Glucose (UA) Normal, Urine Ketones 150 A*, Urine Occult Blood 10 H, Urine Nitrite Negative, Urine Bilirubin Negative, Urine Urobilinogen Normal, Ur Leukocyte Esterase 25 H, Urine RBC 0 SEEN, Urine WBC 0-5 SEEN, Ur Squamous Epith Cells 0 SEEN, Urine Bacteria 1+, Urine Mucus 0 SEEN 11/19/21 05:35: WBC 6.8, RBC 4.66, Hgb 13.6, Hct 40.5, MCV 86.9, MCH 29.2, MCHC 33.6, RDW Std Deviation 38.4, RDW Coeff of Caden 12.0, Plt Count 248, MPV 9.6, Immature Gran % (Auto) 0.300, Neut % (Auto) 51.2, Lymph % (Auto) 39.1, [place] % (Auto) 7.0, Eos % (Auto) 2.1, Baso % (Auto) 0.3, Absolute Neuts (auto) 3.5, Absolute Lymphs (auto) 2.66, Nucleated RBC % 0 11/19/21 05:35: Sodium 137, Potassium 3.5, Chloride 100, Carbon Dioxide 26.0, Anion Gap 11, BUN 13, Creatinine 0.78, Estim Creat Clear Calc 110.64, Est GFR (MDRD) Af Amer 136, Est GFR (MDRD) Non-Af 113, BUN/Creatinine Ratio 16.8, Glucose 81, Calcium 8.6, Total Bilirubin 0.50, AST 20, ALT 28, Alkaline Phosphatase 46, Total Protein 6.5, Albumin 3.3, Globulin 3.2, Albumin/Globulin Ratio 1.0 Radiography Diagnostic Testing: Radiology Impression Abdomen/Pelvis CT 11/18/21 18:44 IMPRESSION: Distended stomach and proximal duodenum and abnormally clustered bowel loops in the right upper quadrant region as well as lateralization of the superior mesenteric artery suspicious for possible internal hernia; possible right paraduodenal hernia. Surgical consultation recommended. Area of decreased density in the periphery of the left hepatic lobe most likely representing fatty infiltration. Correlation with ultrasound is recommended to exclude mass lesion. Electronically Signed: Mario Lawson DO at 20:40 EDT , ADDENDUM: 11/18/212058 IMPRESSION: Distended stomach and proximal duodenum and abnormally clustered bowel loops in the right upper quadrant region as well as lateralization of the superior mesenteric artery suspicious for possible internal hernia; possible right paraduodenal hernia. Surgical consultation recommended. Area of decreased density in the periphery of the left hepatic lobe most likely representing fatty infiltration. Correlation with ultrasound is recommended to exclude mass lesion. N.B. : The above Results were Read Back by Mario Lawson DO to DAYANA Laird, and understanding confirmed on 11/18/2021 20:53:02 (ET). Electronically Signed: Mario Lawson DO at 20:40 EDT , Physical Exam Const oriented x3 Constitutional Narrative: Mild distress from recent NG tube placement attempt Resp normal respiratory effort GI GI Narrative: Nondistended, soft, less tender to palpation Assessment & Plan Assessment/Plan (1) Gastric distention: (2) Abnormal findings on diagnostic imaging of abdomen: (3) Abdominal pain: (4) Abnormal weight loss: (5) Vomiting: (6) Gastric outlet obstruction: PLAN: Plan Patient is hospital day 1 for admission for work-up of functional gastric outlet obstruction, abdominal pain, anorexia. I did update gastroenterology this morning and obtain a consult with them on behalf of Mr. Okeefe. For his part, Mr. Okeefe appears mildly agitated following a couple of unsuccessful attempts to place a nasogastric tube overnight. He is denying any further distress, however, and specifically denies any increase of his abdominal pain or nausea. Recommend: ? N.p.o. with IV fluid resuscitation ? Follow-up ER labs ? Follow-up GI recs Charges/Coding Visit Charges Inpatient E&M: 07334 Subs Hosp L1
[2021-11-19] MEDS: Ondansetron 4 MG/2 ML Vial IV (08:15)
--- NOTE | 2021-11-19 09:00 | CON.PCM_ITS ---
Assessment & Plan Assessment/Plan (1) Gastric distention: PLAN: The differential diagnosis for gastric L obstruction would be a duodenal stricture biopsy secondary to peptic ulcer disease, severe celiac disease, small bowel lymphoma, H. Boyle Nori associated lymphadenopathy gastritis, gastric intestinal metaplasia with Jess gland hyperplasia. Patient undergo an upper endoscopy for evaluation and decompression. He was explained alternatives, risk and benefits including not withstanding bleeding, infection, sepsis, perforation, need for emergent surgery . He will have an ASA of 1. HPI Consult Data Date of Consult: 11/19/21 HPI Narrative Reason for Consultation: Gastric outlet obstruction HPI Narrative: MARIO FERNANDEZ, is a 51 M who presents to the emergency room with no significant past medical history except for GERD and migraines. He has been having worsening epigastric and right upper quadrant pain after eating. He also complains about a 30 pound weight loss over the last 2 months. In the ED he had a CT scan abdomen pelvis that it showed gastric outlet obstruction at the level of the proximal duodenum with abnormally clustered bowel loops in the right upper quadrant as well as some lateralization of the superior mesenteric artery suspicious for possible internal hernia. Clinically he was stable with a white blood cell count of 7.5 hemoglobin 15.3 platelet count of 281. His vitals were also stable. At this time he is just complaining of abdominal distention with abdominal pain. [facility] Medical History (Updated 11/19/21 @ 13:[address] Parul Esqueda, ) Former tobacco use GERD (gastroesophageal reflux disease) History of migraine headaches Medical History no medical history Home Medications acetaminophen 500 mg capsule 1,000 mg PO Q6H PRN Pain 11/18/21 [History Last Taken Unknown] dicyclomine 20 mg tablet 20 mg PO 4X/DAY PRN PRN abdominal cramping 11/18/21 [History Last Taken Unknown] famotidine 20 mg tablet 20 mg PO DAILY PRN GERD 11/18/21 [History Last Taken Unknown] omeprazole 20 mg capsule,delayed release 20 mg PO DAILY PRN GERD 11/18/21 [History Last Taken Unknown] ondansetron HCl 4 mg tablet 4 mg PO Q6H PRN PRN Nausea 11/18/21 [History Last Taken Unknown] polyethylene glycol 3350 17 gram oral powder packet (Miralax) 17 g PO DAILY constipation 11/18/21 [History Last Taken 11/18/21] Allergy/AdvReac Type Severity Reaction Status Date / Time No Known Allergies Allergy Verified 11/18/21 18:22 Family History (Updated 11/18/21 @ 22:[address] Esther Robbins MD) Sister Cholelithiasis NOS Sister x 2 with GB disease, unclear specific type. Father Cholelithiasis NOS Had gallbladder disease, was supposed to have cholecystectomy but had sudden HI with cardiac age 63. Myocardial infarction HI, age 63. Hypertension Heart disease Family History other Surgical History Hx of appendectomy Social History (Updated 11/18/21 @ 22:[address] Esther Robbins MD) household members: spouse and children Smoking Status: Former smoker how long ago did patient quit smoking: Quit ~ 15 yrs ago, smoked 1 ppd since teen until quit. alcohol intake: never substance use type: does not use ROS ROS Narrative Admission Review of Systems: CONSTITUTIONAL: No fever, chills, + weakness or fatigue, weight loss. HEENT: Eyes: No visual loss, blurred vision, double vision or yellow sclerae. Ears, Nose, Throat: No hearing loss, sneezing, congestion, runny nose or sore throat. SKIN: No rash or itching, lesions, wounds. CARDIOVASCULAR: No chest pain, chest pressure or chest discomfort, palpitations, edema, orthopnea, syncopal events. RESPIRATORY: No shortness of breath, cough or sputum, wheezing, hemoptysis. GASTROINTESTINAL: + anorexia, nausea, vomiting, abdominal pain, soft stools, No melena, BRBPR. GENITOURINARY: No dysuria, frequency, urgency or retention. NEUROLOGICAL: No headache, dizziness, syncope, paralysis, ataxia, numbness or tingling in the extremities, focal weakness, change in bowel or bladder control, seizure. MUSCULOSKELETAL: No muscle, back pain, joint pain or stiffness. HEMATOLOGIC: No anemia, bleeding or bruising. LYMPHATICS: No enlarged nodes. No history of splenectomy. PSYCHIATRIC: No history of depression or anxiety. ENDOCRINOLOGIC: No reports of sweating, cold or heat intolerance. No polyuria or polydipsia. ALLERGIES: No history of asthma, hives, eczema or rhinitis. Physical Exam Const alert, oriented x3 and no apparent distress Constitutional Narrative: Middle-aged white male sitting up in bed, nursing at bedside, patient appears comfortable nontoxic HEENT head/scalp atraumatic, moist oral mucous membranes and oropharynx normal HEENT Narrative: Dentition is good, Mallampati is 2, no thrush Resp normal respiratory effort, no retractions, no use of accessory muscles and clear to auscultation bilaterally Auscultation: Negative for crackles, rales, rhonchi or wheezes Cardio regular rate, regular rhythm, S1 normal heart sound, S2 normal heart sound, no murmurs, no rub, no gallops, no clicks and no JVD GI GI Narrative: Soft, no significant distention, mild diffuse tenderness, bowel sounds appear to be a bit hyperactive Extremity no clubbing, cyanosis or edema Neuro oriented x3, CN's II-XII intact bilaterally, moves all extremities and no focal motor deficits Psych Psych Narrative: Affect is flat and mood seems somewhat depressed Medical Records Data Medical Nutrition Assessment Dietitian: Malnutrition Criteria Met Start: 11/19/21 13:23 Freq: Status: Active Protocol: Document 11/19/21 13:24 [facility] (Rec: 11/19/21 13:24 [facility] [id number]) Nutrition Malnutrition Evidence of Malnutrition Exists Yes Malnutrition (severe): Acute Illness/Injury Evidenced By Suboptimal Energy Intake ( Severe),Weight Loss (Severe), Physical Changes (Moderate) Clinical Problem Acute Disease or Injury Related Malnutrition Etiology severe malnutrition r/t pt inability to consume adequate energy to meet estimated nutritional needs d/t GI dysfunction Signs/Symptoms as evidenced by pt reports frequent emesis after eating x <2 month, 17.9% wt loss x <2 month and consuming <75% of est nutritional needs x >1 month. Pt also w/ fat/muscle loss in upper body (clavicle, triceps, temporal/orbital regions, quadricep). Status Active Problem Recommendation Dietitian Recommendations/Changes As medically able, rec diet as tolerated to transitional diet Once po diet resumes, rec ensure clear 8 oz tid w/ meals Rec consider nutrition support if unable to resume po diet within 3 days to help prevent further decline in pt nutritional status. Lab / Micro Data Result Diagrams: 11/19/21 05:35 11/19/21 05:35 Labs: Laboratory Results - last 24 hr 11/18/21 18:40: WBC 7.5, RBC 5.25, Hgb 15.3, Hct 44.6, MCV 85.0, MCH 29.1, MCHC 34.3, RDW Std Deviation 36.9, RDW Coeff of Caden 12.0, Plt Count 281, MPV 9.5, Immature Gran % (Auto) 0.400, Neut % (Auto) 52.8, Lymph % (Auto) 35.8, [place] % (Auto) 8.6, Eos % (Auto) 2.1, Baso % (Auto) 0.3, Absolute Neuts (auto) 4.0, Absolute Lymphs (auto) 2.68, Nucleated RBC % 0 11/18/21 18:40: Sodium 134 L, Potassium 3.2 L, Chloride 91 L, Carbon Dioxide 32.0, Anion Gap 11, BUN 20 H, Creatinine 0.95, Estim Creat Clear Calc 89.53, Est GFR (MDRD) Af Amer 107, Est GFR (MDRD) Non-Af 89, BUN/Creatinine Ratio 21.0 H, Glucose 98, Calcium 9.8, Total Bilirubin 0.50, AST 26, ALT 35, Alkaline Phosphatase 59, Total Protein 8.1, Albumin 4.2, Globulin 3.9, Albumin/Globulin Ratio 1.1, Lipase 305 11/18/21 18:40: Phosphorus 3.8, Magnesium 2.3 11/18/21 : Urine Color Yellow, Urine Clarity Clear, Urine pH 6.0, Ur Specific [place] 1.020, Urine Protein 15 H, Urine Glucose (UA) Normal, Urine Ketones 150 A*, Urine Occult Blood 10 H, Urine Nitrite Negative, Urine Bilirubin Negative, Urine Urobilinogen Normal, Ur Leukocyte Esterase 25 H, Urine RBC 0 SEEN, Urine WBC 0-5 SEEN, Ur Squamous Epith Cells 0 SEEN, Urine Bacteria 1+, Urine Mucus 0 SEEN 11/19/21 05:35: WBC 6.8, RBC 4.66, Hgb 13.6, Hct 40.5, MCV 86.9, MCH 29.2, MCHC 33.6, RDW Std Deviation 38.4, RDW Coeff of Caden 12.0, Plt Count 248, MPV 9.6, Immature Gran % (Auto) 0.300, Neut % (Auto) 51.2, Lymph % (Auto) 39.1, [place] % (Auto) 7.0, Eos % (Auto) 2.1, Baso % (Auto) 0.3, Absolute Neuts (auto) 3.5, Absolute Lymphs (auto) 2.66, Nucleated RBC % 0 11/19/21 05:35: Sodium 137, Potassium 3.5, Chloride 100, Carbon Dioxide 26.0, Anion Gap 11, BUN 13, Creatinine 0.78, Estim Creat Clear Calc 110.64, Est GFR (MDRD) Af Amer 136, Est GFR (MDRD) Non-Af 113, BUN/Creatinine Ratio 16.8, Glucose 81, Calcium 8.6, Total Bilirubin 0.50, AST 20, ALT 28, Alkaline Phosphatase 46, Total Protein 6.5, Albumin 3.3, Globulin 3.2, Albumin/Globulin Ratio 1.0 Radiology Impression Abdomen/Pelvis CT 11/18/21 18:44 IMPRESSION: Distended stomach and proximal duodenum and abnormally clustered bowel loops in the right upper quadrant region as well as lateralization of the superior mesenteric artery suspicious for possible internal hernia; possible right paraduodenal hernia. Surgical consultation recommended. Area of decreased density in the periphery of the left hepatic lobe most likely representing fatty infiltration. Correlation with ultrasound is recommended to exclude mass lesion. Electronically Signed: Mario Lawson DO at 20:40 EDT , ADDENDUM: 11/18/212058 IMPRESSION: Distended stomach and proximal duodenum and abnormally clustered bowel loops in the right upper quadrant region as well as lateralization of the superior mesenteric artery suspicious for possible internal hernia; possible right paraduodenal hernia. Surgical consultation recommended. Area of decreased density in the periphery of the left hepatic lobe most likely representing fatty infiltration. Correlation with ultrasound is recommended to exclude mass lesion. N.B. : The above Results were Read Back by Mario Lawson DO to DAYANA Laird, and understanding confirmed on 11/18/2021 20:53:02 (ET). Electronically Signed: Mario Lawson DO at 20:40 EDT , KUB X-Ray 11/19/21 05:55 IMPRESSION: Normal x-ray examination of the abdomen and pelvis. Electronically Signed: Jacob Salazar MD at 8:10 EDT , Charges/Coding Visit Charges Inpatient E&M: 93537 Init Hosp L2
[2021-11-19] MEDS: proCHLORPERazine 10 MG/2 ML Vial 5 MG IV (09:31)
--- NOTE | 2021-11-19 09:53 | CASEMGMT ---
Addendum entered by Charlotte Acosta 11/19/21 09:56: Pt lives with and 3 kids. Original Note: NAOMI WILD Assessment: Face to Face with pt for initial transition planning/care coordination assessment. RN CM introduced self and role at [facility], pt voices understanding and consents to assessment. Pt sitting up in bed eating ice chips in no distress. Pt is A/O x4 and answers all questions appropriately at this time. Care providers, pharmacy, and demographics verified/updated. Admitting Dx: abdominal pain PCP: Leah Weathers Specialists: ADALBERTO Carbajal Preferred [facility]acy: [facility] Insurance: [email or web address] Prescription Benefit: yes LW/HPOA: Pt denies having a LW/DPOA and denies need for info regarding AD. LNOK: Mariella Okeefe, Living Arrangements: Pt lives in a two story house with 4-5 steps to enter. Pt reports he is I in ADL's and denies concerns at home. Transportation: Pt drives self and denies concerns with transportation. DME/HHC/SNF: Pt denies having any DME, previous HHC or SNF stays. Pt states no concerns with going home at time of dc. Pt states no further concerns/needs. CM to follow. Advised pt to ask CM if any further question/concerns/needs arise, voices understanding. Pt Goal: Home Plan: Home
--- NOTE | 2021-11-19 12:05 | EGD_PTH ---
PATIENT: JOSE FERNANDEZ LOC: MS3 U#:[id number] AGE/SX: 51/M ROOM: [facility] RE11/18/[address]: Dr. Parul Esqueda DO : 1970 BED: 1 DIS: 11/21/2021 SPEC #: [id number] RECD: 11/19/21 18:54 STATUS: CORBY REQ #: [id number] ADAM: 11/19/21 12:[address]: Dean Turcios DEPT: SURGICAL PATHOLOGY RECD BY: Janey Grey ENTERED: 11/22/21 07:57 SP TYPE: EGD BIOPSY OTHR DR: MD Dr. Parul Izaguirre DO Dr. Michael Bortz, MD Pamela Rogers, [employer] Tissues: Duodenum, NOS Procedures: Surgery Specimen Level IV Comments: @ Ordering doctor for SUIV edited from to @ chandler DENNISON at 11/22/21920 @ Submitting doctor edited from to @ by JESI at 11/22/21920 HEADER OPERATION: EGD with balloon dilation, biopsy, APC (MAC) with fluoro PRE-OP DIAGNOSIS: Gastric distention, abdominal pain, abnormal weight loss, vomiting, gastric outlet obstruction TISSUE SUBMITTED: Duodenal stricture biopsy MICROSCOPIC DIAGNOSIS Duodenal stricture, biopsy: Mild nonspecific chronic inflammation. AM:naveen 11/24/2021 MICROSCOPIC DESCRIPTION Slides are reviewed. GROSS DESCRIPTION Received in fixative is one container labeled with the patient's name and designated duodenal stricture biopsy. The specimen consists of multiple irregular fragments of light [place] soft tissue that in aggregate measure 2 x 1 x 0.1 cm. The specimen is totally submitted in one cassette. / AM:naveen 11/22/2021 TC:3 CPT: 81434
--- NOTE | 2021-11-19 13:07 | PCM.PN.HOSP ---
Subjective Subjective Is a 51-year-old male who admitted last evening with abdominal pain, nausea, vomiting, and anorexia. 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 NG tube was attempted x2 last evening but unable to be placed. The patient reports that his abdominal pain is fairly stable and he has had no significant nausea as long as he is NPO. Awaiting GI input. Objective Data Objective Data Vital Signs: Vital Signs Temp Pulse Resp BP Pulse Ox O2 Del Method 98.5 F 67 16 97/62 98 Room Air 11/19/21 06:36 11/19/21 06:36 11/19/21 06:36 11/19/21 06:36 11/19/21 06:36 11/19/21 07:43 Oxygen Delivery Method Room Air Weight: 69.037 kg Body Mass Index (BMI) 22.4 Intake & Output: Intake and Output for Last 24 Hours 11/17/21 11/18/21 11/19/21 23:59 23:59 23:59 Intake Total 1110 / 1110 976.67 / 976.67 Output Total 200 / 200 Balance 1110 / 1110 776.67 / 776.67 Lab / Micro Data Result Diagrams: 11/19/21 05:35 11/19/21 05:35 Labs: Laboratory Results - last 24 hr 11/18/21 18:40: WBC 7.5, RBC 5.25, Hgb 15.3, Hct 44.6, MCV 85.0, MCH 29.1, MCHC 34.3, RDW Std Deviation 36.9, RDW Coeff of Caden 12.0, Plt Count 281, MPV 9.5, Immature Gran % (Auto) 0.400, Neut % (Auto) 52.8, Lymph % (Auto) 35.8, [place] % (Auto) 8.6, Eos % (Auto) 2.1, Baso % (Auto) 0.3, Absolute Neuts (auto) 4.0, Absolute Lymphs (auto) 2.68, Nucleated RBC % 0 11/18/21 18:40: Sodium 134 L, Potassium 3.2 L, Chloride 91 L, Carbon Dioxide 32.0, Anion Gap 11, BUN 20 H, Creatinine 0.95, Estim Creat Clear Calc 89.53, Est GFR (MDRD) Af Amer 107, Est GFR (MDRD) Non-Af 89, BUN/Creatinine Ratio 21.0 H, Glucose 98, Calcium 9.8, Total Bilirubin 0.50, AST 26, ALT 35, Alkaline Phosphatase 59, Total Protein 8.1, Albumin 4.2, Globulin 3.9, Albumin/Globulin Ratio 1.1, Lipase 305 11/18/21 18:40: Phosphorus 3.8, Magnesium 2.3 11/18/21 : Urine Color Yellow, Urine Clarity Clear, Urine pH 6.0, Ur Specific [place] 1.020, Urine Protein 15 H, Urine Glucose (UA) Normal, Urine Ketones 150 A*, Urine Occult Blood 10 H, Urine Nitrite Negative, Urine Bilirubin Negative, Urine Urobilinogen Normal, Ur Leukocyte Esterase 25 H, Urine RBC 0 SEEN, Urine WBC 0-5 SEEN, Ur Squamous Epith Cells 0 SEEN, Urine Bacteria 1+, Urine Mucus 0 SEEN 11/19/21 05:35: WBC 6.8, RBC 4.66, Hgb 13.6, Hct 40.5, MCV 86.9, MCH 29.2, MCHC 33.6, RDW Std Deviation 38.4, RDW Coeff of Caden 12.0, Plt Count 248, MPV 9.6, Immature Gran % (Auto) 0.300, Neut % (Auto) 51.2, Lymph % (Auto) 39.1, [place] % (Auto) 7.0, Eos % (Auto) 2.1, Baso % (Auto) 0.3, Absolute Neuts (auto) 3.5, Absolute Lymphs (auto) 2.66, Nucleated RBC % 0 11/19/21 05:35: Sodium 137, Potassium 3.5, Chloride 100, Carbon Dioxide 26.0, Anion Gap 11, BUN 13, Creatinine 0.78, Estim Creat Clear Calc 110.64, Est GFR (MDRD) Af Amer 136, Est GFR (MDRD) Non-Af 113, BUN/Creatinine Ratio 16.8, Glucose 81, Calcium 8.6, Total Bilirubin 0.50, AST 20, ALT 28, Alkaline Phosphatase 46, Total Protein 6.5, Albumin 3.3, Globulin 3.2, Albumin/Globulin Ratio 1.0 Radiography Diagnostic Testing: Radiology Impression Abdomen/Pelvis CT 11/18/21 18:44 IMPRESSION: Distended stomach and proximal duodenum and abnormally clustered bowel loops in the right upper quadrant region as well as lateralization of the superior mesenteric artery suspicious for possible internal hernia; possible right paraduodenal hernia. Surgical consultation recommended. Area of decreased density in the periphery of the left hepatic lobe most likely representing fatty infiltration. Correlation with ultrasound is recommended to exclude mass lesion. Electronically Signed: Mario Lawson DO at 20:40 EDT , ADDENDUM: 11/18/212058 IMPRESSION: Distended stomach and proximal duodenum and abnormally clustered bowel loops in the right upper quadrant region as well as lateralization of the superior mesenteric artery suspicious for possible internal hernia; possible right paraduodenal hernia. Surgical consultation recommended. Area of decreased density in the periphery of the left hepatic lobe most likely representing fatty infiltration. Correlation with ultrasound is recommended to exclude mass lesion. N.B. : The above Results were Read Back by Mario Lawson DO to Dr. Rafiq Gomez, AA, and understanding confirmed on 11/18/2021 20:53:02 (ET). Electronically Signed: Mario Lawson DO at 20:40 EDT , KUB X-Ray 11/19/21 05:55 IMPRESSION: Normal x-ray examination of the abdomen and pelvis. Electronically Signed: Jacob Salazar MD at 8:10 EDT , Physical Exam Const alert, oriented x3 and no apparent distress Constitutional Narrative: Middle-aged white male sitting up in bed, nursing at bedside, patient appears comfortable nontoxic HEENT head/scalp atraumatic, moist oral mucous membranes and oropharynx normal HEENT Narrative: Dentition is good, Mallampati is 2, no thrush Resp normal respiratory effort, no retractions, no use of accessory muscles and clear to auscultation bilaterally Auscultation: Negative for crackles, rales, rhonchi or wheezes Cardio regular rate, regular rhythm, S1 normal heart sound, S2 normal heart sound, no murmurs, no rub, no gallops, no clicks and no JVD GI GI Narrative: Soft, no significant distention, mild diffuse tenderness, bowel sounds appear to be a bit hyperactive Extremity no clubbing, cyanosis or edema Neuro oriented x3, CN's II-XII intact bilaterally, moves all extremities and no focal motor deficits Psych Psych Narrative: Affect is flat and mood seems somewhat depressed Assessment & Plan Assessment/Plan (1) Gastric distention: (2) Abnormal findings on diagnostic imaging of abdomen: (3) Abdominal pain: (4) Abnormal weight loss: (5) Vomiting: (6) Gastric outlet obstruction: (7) Severe malnutrition: PLAN: Plan Abdominal pain/intractable nausea and vomiting -Suspected functional outlet obstruction based on CT of the abdomen pelvis -General surgery is currently deferring to gastroenterology for further work-up -Likely EGD and colonoscopy tomorrow -Continue antiemetics -Continue as needed pain medication -Continue PPI IV twice daily -Continue IV fluids but decrease from 125 cc/h to 75 cc/h -Check a.m. TSH -CEA and CA 19-9 pending -General surgery and GI following-appreciate input GERD -Patient takes famotidine and omeprazole at baseline -Continue PPI twice daily IV Severe malnutrition -Patient reports approximately 30 pound weight loss in 2 months with extremely poor p.o. intake during that time. -Consult dietitian -Add dietary supplements once p.o. is possible -May need to consider TPN History of migraines -No current issues -Monitor History of tobacco abuse -Encourage continued cessation DVT prophylaxis -SCDs -Start Lovenox daily CODE STATUS -Full code Charges/Coding Visit Charges Inpatient E&M: 77829 Subs Hosp L2
--- NOTE | 2021-11-19 16:25 | OP.EGD_ITS ---
Patient Name: Mario Okeefe Procedure Date: 11/19/2021 3:05 PM Date of : 1970 Age: 51 Procedure: Upper GI endoscopy Indications: Epigastric abdominal pain Providers: Dean Turcios DO Medicines: Monitored Anesthesia Care Patient Profile: This is a 51 year old male. Refer to note in patient chart for documentation of history and physical. Patient has symptoms of acute abdominal distention and acute epigastric abdominal pain. Complications: No immediate complications. Procedure: Pre-Anesthesia Assessment: - Prior to the procedure, a History and Physical was performed, and patient medications and allergies were reviewed. The patient is competent. The risks and benefits of the procedure and the sedation options and risks were discussed with the patient. All questions were answered and informed consent was obtained. Patient identification and proposed procedure were verified by the physician in the pre-procedure area. Mental Status Examination: alert and oriented. Airway Examination: normal oropharyngeal airway and neck mobility. Respiratory Examination: clear to auscultation. CV Examination: normal. Prophylactic Antibiotics: The patient does not require prophylactic antibiotics. Prior Anticoagulants: The patient has taken no previous anticoagulant or antiplatelet agents. ASA Grade Assessment: II - A patient with mild systemic disease. After reviewing the risks and benefits, the patient was deemed in satisfactory condition to undergo the procedure. The anesthesia plan was to use moderate sedation / analgesia (conscious sedation). Immediately prior to administration of medications, the patient was re-assessed for adequacy to receive sedatives. The heart rate, respiratory rate, oxygen saturations, blood pressure, adequacy of pulmonary ventilation, and response to care were monitored throughout the procedure. The physical status of the patient was re-assessed after the procedure. After obtaining informed consent, the endoscope was passed under direct vision. Throughout the procedure, the patient's blood pressure, pulse, and oxygen saturations were monitored continuously. The colonoscope was introduced through the mouth, and advanced to the third part of duodenum. The upper GI endoscopy was accomplished without difficulty. The patient tolerated the procedure well. Moderate Sedation: Moderate (conscious) sedation was personally administered by an anesthesia professional. The following parameters were monitored: oxygen saturation, heart rate, blood pressure, respiratory rate, EKG, adequacy of pulmonary ventilation, and response to care. Scope In: 3:09:12 PM Scope Out: 4:03:41 PM Total Procedure Duration Time 0 hours 54 minutes 29 seconds Findings: LA Grade B (one or more mucosal breaks greater than 5 mm, not extending between the tops of two mucosal folds) esophagitis with no bleeding was found 37 to 39 cm from the incisors. Excessive fluid was found in the entire examined stomach. Fluid aspiration was performed through an aspiration catheter. The amount of fluid collected was 1000 mL. The fluid was cloudy. One non-bleeding cratered duodenal ulcer with no stigmata of bleeding was found in the duodenal bulb. The lesion was 6 mm in largest dimension. Coagulation for hemostasis using heater probe was successful. An acquired benign-appearing, intrinsic severe stenosis was found in the duodenal bulb and was traversed after dilation. A TTS dilator was passed through the scope. Dilation with a 20 mm pyloric balloon dilator was performed under fluoroscopic guidance. The dilation site was examined following endoscope reinsertion and showed moderate improvement in luminal narrowing. Biopsies were taken with a cold forceps for histology. Verification of patient identification for the specimen was done. Estimated blood loss was minimal. Impression: - LA Grade B erosive esophagitis. - Excessive gastric fluid. Fluid aspiration performed. - One non-bleeding duodenal ulcer with no stigmata of bleeding. Treated with a heater probe. - Acquired duodenal stenosis. Dilated. Biopsied. Recommendation: - Return patient to hospital [facility] for ongoing care. - Use Reglan (metoclopramide) 10 mg IV QID for 7 days. - Give Protonix (pantoprazole): initiate therapy with 80 mg IV bolus, then 8 mg/hr IV by continuous infusion. - NPO today. - Use azithromycin 500 mg IV q 8 hr. - The patient has taken no previous anticoagulant or antiplatelet agents. Procedure Code(s): --- Professional --- 01411, 59, Esophagogastroduodenoscopy, flexible, transoral; with control of bleeding, any method 15201, 51, Esophagogastroduodenoscopy, flexible, transoral; with dilation of gastric/duodenal stricture(s) (eg, balloon, bougie) 82055, 59, Esophagogastroduodenoscopy, flexible, transoral; with biopsy, single or multiple 81822, 26, Intraluminal dilation of strictures and/or obstructions (eg, esophagus), radiological supervision and interpretation CPT copyright 2017 [employer]. All rights reserved. The codes documented in this report are preliminary and upon tankage grinder review may be revised to meet current compliance requirements. Dean Turcios DO 11/19/2021 4:25:06 PM This report has been signed electronically. Number of Addenda: 1 Note Initiated On: 11/19/2021 3:05 PM Addendum Number: 1 Addendum Date: 02/09/2022 6:18:32 AM MAC was used as sedation for this procedure. Dean Turcios DO 02/09/2022 6:18:35 AM This report has been signed electronically.
--- NOTE | 2021-11-19 16:26 | OP.CCLET_ITS ---
02/09/2022 Mainor Hernandez Re : Upper GI endoscopy procedure for Mario Rogers Jasiel This procedure was performed on Friday, November 19, 2021. My impressions and recommendations are as follows: Impressions : - LA Grade B erosive esophagitis. - Excessive gastric fluid. Fluid aspiration performed. - One non-bleeding duodenal ulcer with no stigmata of bleeding. Treated with a heater probe. - Acquired duodenal stenosis. Dilated. Biopsied. Recommendations : - Return patient to hospital [facility] for ongoing care. - Use Reglan (metoclopramide) 10 mg IV QID for 7 days. - Give Protonix (pantoprazole): initiate therapy with 80 mg IV bolus, then 8 mg/hr IV by continuous infusion. - NPO today. - Use azithromycin 500 mg IV q 8 hr. - The patient has taken no previous anticoagulant or antiplatelet agents. My findings are described in the full procedure note, which is enclosed. If I can be of further assistance, please feel free to contact me at . Sincerely, Dean Turcios, 11/19/2021 4:25:06 PM This report has been signed electronically.
[2021-11-19] MEDS: 0.9% Normal Saline 1,000 ML 75 ML IV (17:43)
[2021-11-19] MEDS: Metoclopramide 10 MG/2 ML Vial IV (18:03)
[2021-11-19] MEDS: Morphine 2 MG/ML Syringe IV (19:46)
[2021-11-19] MEDS: 0.9% Saline Lock 10 ML Syringe IV (19:47)
[2021-11-19] MEDS: Phenol/Sodium Phenolate 180ML 5 SPRAY MUCOUS MEM (21:14)
[2021-11-20] MEDS: Metoclopramide 10 MG/2 ML Vial IV ×4 (00:25→18:03)
[2021-11-20] MEDS: Phenol/Sodium Phenolate 180ML 5 SPRAY MUCOUS MEM ×2 (00:25→05:24)
[2021-11-20] MEDS: 0.9% Saline Lock 10 ML Syringe IV ×4 (00:25→18:03)
[2021-11-20 03:53] VITALS: BP 99/56; PULSE 56; RESP 16; TEMP 36.1; O2SAT 100
[2021-11-20] MEDS: 0.9% Normal Saline 1,000 ML 75 ML IV ×2 (05:25→19:48)
[2021-11-20 07:29] VITALS: O2SAT 98
[2021-11-20 07:30] LABS: Anion Gap 14 (5-15); BUN 8 mg/dL (7-18); BUN/Creat Ratio 12.8 RATIO (10-20); Calcium,Total 8.7 mg/dL (8.5-10.1); Chloride 105 mmol/L (98-107); Creatinine, Serum 0.62 mg/dL (0.70-1.30); EST Glomerular Filtration Rate 145 mL/min (>60); Est Glom Filt Rate - Afr Amer 175 mL/min (>60); Estimated Creatinine Clearance 142.54 ml/min; Glucose 59 mg/dL (74-106); Potassium 4.4 mmol/L (3.5-5.1); Sodium Level 139 mmol/L (136-145)
[2021-11-20 07:40] VITALS: BP 104/61; PULSE 57; RESP 16; TEMP 36.6; O2SAT 97
[2021-11-20 08:23] LABS: Carcinoembryonic Antigen 1.1 ng/mL (0.0-4.7)
--- NOTE | 2021-11-20 12:12 | PN.HOSP_ITS ---
Objective Data Objective Data Vital Signs: Vital Signs Temp Pulse Resp BP Pulse Ox O2 Del Method 97.8 F 57 L 16 104/61 97 Room Air 11/20/21 07:40 11/20/21 07:40 11/20/21 07:40 11/20/21 07:40 11/20/21 07:40 11/20/21 07:40 Oxygen Delivery Method Room Air Weight: 71.8 kg Body Mass Index (BMI) 22.4 Intake & Output: Intake and Output for Last 24 Hours 11/18/21 11/19/21 11/20/21 23:59 23:59 23:59 Intake Total 1110 / 1110 1905.84 / 1905.84 2201.5 / 2201.5 Output Total 200 / 200 1575 / 1575 Balance 1110 / 1110 1705.84 / 1705.84 626.5 / 626.5 Medical Nutrition Assessment Dietitian: Malnutrition Criteria Met Start: 11/19/21 13:23 Freq: Status: Active Protocol: Document 11/19/21 13:24 SLA (Rec: 11/19/21 13:24 SLA [id number]) Nutrition Malnutrition Evidence of Malnutrition Exists Yes Malnutrition (severe): Acute Illness/Injury Evidenced By Suboptimal Energy Intake ( Severe),Weight Loss (Severe), Physical Changes (Moderate) Clinical Problem Acute Disease or Injury Related Malnutrition Etiology severe malnutrition r/t pt inability to consume adequate energy to meet estimated nutritional needs d/t GI dysfunction Signs/Symptoms as evidenced by pt reports frequent emesis after eating x <2 month, 17.9% wt loss x <2 month and consuming <75% of est nutritional needs x >1 month. Pt also w/ fat/muscle loss in upper body (clavicle, triceps, temporal/orbital regions, quadricep). Status Active Problem Recommendation Dietitian Recommendations/Changes As medically able, rec diet as tolerated to transitional diet Once po diet resumes, rec ensure clear 8 oz tid w/ meals Rec consider nutrition support if unable to resume po diet within 3 days to help prevent further decline in pt nutritional status. Lab / Micro Data Result Diagrams: 11/19/21 05:35 11/20/21 06:22 Labs: Laboratory Results - last 24 hr 11/18/21 22:20: Carcinoembryonic Ag 1.1 11/20/21 06:22: Sodium 139, Potassium 4.4, Chloride 105, Carbon Dioxide 20.0 L, Anion Gap 14, BUN 8, Creatinine 0.62 L, Estim Creat Clear Calc 142.54, Est GFR (MDRD) Af Amer 175, Est GFR (MDRD) Non-Af 145, BUN/Creatinine Ratio 12.8, Glucose 59 L, Calcium 8.7 Physical Exam Const alert, oriented x3, no apparent distress and average body habitus Constitutional Narrative: Middle-aged white male sitting up in bed, nursing at bedside, patient appears comfortable nontoxic, NG tube in place HEENT head/scalp atraumatic, moist oral mucous membranes and oropharynx normal HEENT Narrative: NG tube in place-left nares, Mallampati is 2, no thrush, dentition good Resp normal respiratory effort, no retractions, no use of accessory muscles and clear to auscultation bilaterally Auscultation: Negative for crackles, rales, rhonchi or wheezes Cardio regular rate, regular rhythm, S1 normal heart sound, S2 normal heart sound, no murmurs, no rub, no gallops, no clicks and no JVD GI normal to inspection, nondistended, normoactive bowel sounds, soft to palpation, non-tender and non-distended Extremity no clubbing, cyanosis or edema Neuro oriented x3, moves all extremities and no focal motor deficits Psych affect normal Psych Narrative: Patient much more interactive today and appears if he is feeling better Assessment & Plan Assessment/Plan (1) Gastric distention: (2) Abnormal findings on diagnostic imaging of abdomen: (3) Abdominal pain: (4) Abnormal weight loss: (5) Vomiting: (6) Gastric outlet obstruction: (7) Severe malnutrition: PLAN: Plan GOO secondary to severe duodenal stenosis -EGD done 11/19/2021 that showed grade B esophagitis with no bleeding, excessive fluid in the entire stomach, 1 nonbleeding cratered duodenal ulcer with no stigmata of bleeding in the duodenal bulb, coagulation for acute hemostasis using heater probe was used successfully, and acquired benign-appearing intrinsic severe stenosis in the duodenal bulb and was traversed after dilation, luminal narrowing improved after dilation, biopsies obtained -Continue Reglan 10 mg IV 4 times daily for 7 days--> convert to oral once p atient has bowel movement -Protonix drip initiated and will continue and then p.o. Protonix 40 mg twice daily for 8 weeks -Azithromycin 500 mg every 8 hours to stimulate bowels will need 5 days of the rapy and convert to oral at discharge -Okay to start clear liquid diet advance to full's if tolerated -Clamp NG tube and remove if falls are tolerated -Continue IV fluids but discontinue if oral intake is adequate -CEA and CA 19-9 pending -General surgery and GI following-appreciate input GERD -Continue Protonix drip Severe malnutrition -Patient reports approximately 30 pound weight loss in 2 months with extremely poor p.o. intake during that time. -Dietitian following -Add dietary supplements Ensure today -Advance diet as able History of migraines -No current issues -Monitor -Avoid NSAID use History of tobacco abuse -Encourage continued cessation DVT prophylaxis -SCDs -Lovenox daily CODE STATUS -Full code Charges/Coding Visit Charges Inpatient E&M: 52499 Subs Hosp L2
[2021-11-20 14:08] VITALS: BP 109/69; PULSE 83; RESP 16; TEMP 36.8; O2SAT 98
[2021-11-20 14:11] VITALS: RESP 18
--- NOTE | 2021-11-20 20:05 | PCM.PROGNOTE ---
Subjective Subjective Patient is doing a lot better. He underwent an upper endoscopy yesterday for a gastric outlet obstruction. Objective Data Objective Data Vital Signs: Vital Signs Temp Pulse Resp BP Pulse Ox O2 Del Method 98.2 F 83 18 109/69 98 Room Air 11/20/21 14:08 11/20/21 14:08 11/20/21 14:11 11/20/21 14:08 11/20/21 14:08 11/20/21 14:11 Oxygen Delivery Method Room Air Weight: 158 lb 4.67 oz Body Mass Index (BMI) 22.4 Intake & Output: Intake and Output for Last 24 Hours 11/18/21 11/19/21 11/20/21 23:59 23:59 23:59 Intake Total 1110 / 1110 1905.84 / 1905.84 3781.83 / 3781.83 Output Total 200 / 200 1775 / 1775 Balance 1110 / 1110 1705.84 / 1705.84 2006.83 / 2006.83 Medical Nutrition Assessment Dietitian: Malnutrition Criteria Met Start: 11/19/21 13:23 Freq: Status: Active Protocol: Document 11/19/21 13:24 SLA (Rec: 11/19/21 13:24 SLA [id number]) Nutrition Malnutrition Evidence of Malnutrition Exists Yes Malnutrition (severe): Acute Illness/Injury Evidenced By Suboptimal Energy Intake ( Severe),Weight Loss (Severe), Physical Changes (Moderate) Clinical Problem Acute Disease or Injury Related Malnutrition Etiology severe malnutrition r/t pt inability to consume adequate energy to meet estimated nutritional needs d/t GI dysfunction Signs/Symptoms as evidenced by pt reports frequent emesis after eating x <2 month, 17.9% wt loss x <2 month and consuming <75% of est nutritional needs x >1 month. Pt also w/ fat/muscle loss in upper body (clavicle, triceps, temporal/orbital regions, quadricep). Status Active Problem Recommendation Dietitian Recommendations/Changes As medically able, rec diet as tolerated to transitional diet Once po diet resumes, rec ensure clear 8 oz tid w/ meals Rec consider nutrition support if unable to resume po diet within 3 days to help prevent further decline in pt nutritional status. Lab / Micro Data Result Diagrams: 11/19/21 05:35 11/20/21 06:22 Labs: Laboratory Results - last 24 hr 11/18/21 22:20: Carcinoembryonic Ag 1.1 11/20/21 06:22: Sodium 139, Potassium 4.4, Chloride 105, Carbon Dioxide 20.0 L, Anion Gap 14, BUN 8, Creatinine 0.62 L, Estim Creat Clear Calc 142.54, Est GFR (MDRD) Af Amer 175, Est GFR (MDRD) Non-Af 145, BUN/Creatinine Ratio 12.8, Glucose 59 L, Calcium 8.7 Physical Exam Const alert, oriented x3, no apparent distress and average body habitus Constitutional Narrative: Middle-aged white male sitting up in bed, nursing at bedside, patient appears comfortable nontoxic, NG tube in place HEENT head/scalp atraumatic, moist oral mucous membranes and oropharynx normal HEENT Narrative: NG tube in place-left nares, Mallampati is 2, no thrush, dentition good Resp normal respiratory effort, no retractions, no use of accessory muscles and clear to auscultation bilaterally Auscultation: Negative for crackles, rales, rhonchi or wheezes Cardio regular rate, regular rhythm, S1 normal heart sound, S2 normal heart sound, no murmurs, no rub, no gallops, no clicks and no JVD GI normal to inspection, nondistended, normoactive bowel sounds, soft to palpation, non-tender and non-distended Extremity no clubbing, cyanosis or edema Neuro oriented x3, moves all extremities and no focal motor deficits Psych affect normal Psych Narrative: Patient much more interactive today and appears if he is feeling better Assessment & Plan Assessment/Plan (1) Gastric outlet obstruction: PLAN: Gastric outlet obstruction thought to be secondary to a duodenal ulcer status post dilation and placement of NG tube for decompression. He has been on PPI drip, Reglan and and will be getting azithromycin. If patient does okay and continues to progress then he should be able to be DC'd tomorrow with close follow-up. No nonsteroidals upon discharge. He should also have liquid sulcal fate 1 g p.o. 3 times daily until he is seen in the office with twice daily PPI therapy. Reglan therapy and azithromycin only need to be for 7 days total. Charges/Coding Visit Charges Inpatient E&M: 74569 Subs Hosp L2
[2021-11-20 20:30] VITALS: BP 104/52; PULSE 73; RESP 16; TEMP 37.2; O2SAT 100
[2021-11-21] MEDS: Metoclopramide 10 MG/2 ML Vial IV ×3 (00:04→11:29)
[2021-11-21 02:15] VITALS: BP 113/79; PULSE 84; RESP 16; TEMP 36.8; O2SAT 97
[2021-11-21 06:20] LABS: Absolute Lymphocyte Count 2.22 X10^3/uL (0.83-4.51); Absolute Neutrophil Count 3.8 X10^3/uL (2.0-7.7); Basophil# 0.02 X10^3/uL; Basophil% 0.3 % (0-1); Eosinophil# 0.21 X10^3/uL; Eosinophils% 3.1 % (0-5); Hematocrit 36.9 % (40-54); Hemoglobin 12.5 g/dL (13.0-16.5); Lymphocyte # 2.22 X10^3/ul (0.83-4.51); Mean Corp Hgb Conc 33.9 g/dL (32-36); Mean Corpuscular Hgb 28.7 pg (27.0-32.0); Mean Corpuscular Volume 84.6 fL (80-94); Mean Platelet Vol. 9.8 fl (6.2-12.0); Monocyte# 0.46 X10^3/uL; Monocyte% 6.8 % (0-10); NRBC Flagged by Analyzer 0 % (0-5); Neutrophil % 56.5 % (47-70); Platelet Count 221 K/mm3 (150-450); RBC Distribution Width CV 12.3 % (11.6-14.6); RBC Distribution Width SD 37.9 fl (35.1-43.9); Red Blood Count 4.36 M/mm3 (4.6-6.2); White Blood Count 6.7 K/mm3 (4.4-11.0)
[2021-11-21 06:51] LABS: Anion Gap 3 (5-15); BUN 6 mg/dL (7-18); BUN/Creat Ratio 9.1 RATIO (10-20); Calcium,Total 8.5 mg/dL (8.5-10.1); Chloride 110 mmol/L (98-107); Creatinine, Serum 0.66 mg/dL (0.70-1.30); EST Glomerular Filtration Rate 136 mL/min (>60); Est Glom Filt Rate - Afr Amer 165 mL/min (>60); Glucose 117 mg/dL (74-106); Sodium Level 140 mmol/L (136-145)
[2021-11-21 07:40] VITALS: O2SAT 97
--- NOTE | 2021-11-21 11:21 | DS.PCM_ITS ---
Providers Date of Admission: 11/18/21 Date of Discharge: 11/21/21 Primary Care Physician: Leah Weathers, MALLIKA-C Consultations 11/18/21 22:48 Consult: Gastroenterology Routine Consulting Provider: Anurag [facility] Reason for Consult: Abd pain, ? Gastric outlet obstruction, ? GB, ? Mass EMERGENT Consult: No Notified: Yes Date Notified: 11/18/21 Time Notified: 22:23 Method of Notification: called per Dr. Miller Consult: General Surgery Routine Consulting Provider: Mario Miller Reason for Consult: Abdominal pain, ? GB, ? Gastric outlet obstruction, ? 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 -EGD done 11/19/2021 that showed grade B esophagitis with no bleeding, excessive fluid in the entire stomach, 1 nonbleeding cratered duodenal ulcer with no stigmata of bleeding in the duodenal bulb, coagulation for acute hemostasis using heater probe was used successfully, and acquired benign-appearing intrins ic severe stenosis in the duodenal bulb and was traversed after dilation, luminal narrowing improved after dilation, biopsies obtained -Continue Reglan 10 mg IV 4 times daily for 7 days--> convert to oral once patient has bowel movement -Protonix drip initiated and will continue and then p.o. Protonix 40 mg twice daily for 8 weeks -Azithromycin 500 mg every 8 hours to stimulate bowels will need 5 days of therapy and convert to oral at discharge -Okay to start clear liquid diet advance to full's if tolerated -Clamp NG tube and remove if falls are tolerated -Continue IV fluids but discontinue if oral intake is adequate -CEA and CA 19-9 pending -General surgery and GI following-appreciate input GERD -Continue Protonix drip Severe malnutrition -Patient reports approximately 30 pound weight loss in 2 months with extremely poor p.o. intake during that time. -Dietitian following -Add dietary supplements Ensure today -Advance diet as able History of migraines -No current issues -Monitor -Avoid NSAID use History of tobacco abuse -Encourage continued cessation DVT prophylaxis -SCDs -Lovenox daily CODE STATUS -Full code Medications at Discharge Home Medications acetaminophen 500 mg capsule 1,000 mg PO Q6H PRN Pain 11/18/21 dicyclomine 20 mg tablet 20 mg PO 4X/DAY PRN PRN abdominal cramping 11/18/21 ondansetron HCl 4 mg tablet 4 mg PO Q6H PRN PRN Nausea 11/18/21 metoclopramide HCl 5 mg tablet (Reglan) 5 mg PO TID #15 tabs 11/21/21 pantoprazole 40 mg tablet,delayed release (Protonix) 40 mg PO BID #60 tabs 11/21/21 Hospital Course Operations None Procedures EGD (With biopsies) Summary of Care Provided Minutes Spent on Discharge: 37 Hospital Course: Mr. Okeefe is a 51-year-old white male who presented to the emergency department at [facility] on 11/18/2021 with a chief complaint of abdominal pain, early satiety, nausea, vomiting, 30 pound weight loss in 2 months, constipation, and what sounds like acholic stools. Work-up in the ED included T97.3, heart rate 93, BP 125/87, respiratory rate 14, 99% on room air, CBC with WC 7.5, hemoglobin 15.3, platelet 281 without marked shift, CMP with sodium 134, potassium 3.2, chloride 91, BUN/creatinine 20/0.95 otherwise hepatic profile unremarkable, lipase 305, urinalysis with evidence of dehydration with elevated specific gravity 1.020, protein 15, ketones 150, occult blood 10, negative nitrite, leukocyte Estrace 25, 0 urine RBC, 0 urine WC, 1+ urine bacteria, distended stomach and proximal duodenum and abnormally clustered bowel loops in the right upper quadrant region as well as lateralization of the superior mesenteric artery suspicious for possible internal hernia; possible right paraduodenal hernia, area of decreased density in the periphery of the left hepatic lobe most likely representing fatty infiltration. ED physician discussed case with general surgery, Dr. Miller who evaluated the patient in the ED and requested placement of NG tube as well as CA-19-9 to be obtained in addition to a gastroenterology consultation. Patient was given 1 L of IV fluids emergency department and then admitted to the medical surgical floor at which time he was seen by Dr. Miller from general surgery. Dr. Miller opinion based on his review of the imaging and noted that thepatient appears to have an abrupt transition at the junction of the second and third portions of the duodenum with the latter part of the duodenum wrapping behind the gastric antrum in the lesser sac and then into the right side of the abdomen causing the lateralization of the superior mesenteric artery.? Importantly there is not a complete 360 degree swirl of these mesenteric vessels as would be seen with a internal hernia. So he did disagree with the end original CAT scan read. There was concern for neoplastic process and a CEA and a CA 19-9 was performed and gastroenterology was consulted for scopes. The patient was taken for an EGD on 11/19/2021 at which time he was noted to have grade B erosive esophagitis, excessive gastric fluid, 1 nonbleeding duodenal ulcer with no stigmata of bleeding that was treated with heater probe, and required severe duodenal stenosis which was dilated and biopsied. It was felt that this stenosis was benign-appearing and intrinsic and likely related to the ulcer. There was concern that his ulcer was prompted by his frequent use of Excedrin for his headaches. The patient was started on Reglan, and IV Protonix drip, azithromycin, and maintain n.p.o. status 24 hours after his EGD. The day after his EGD he was started on clear liquids and advanced to full liquids without difficulty and we therefore removed his NG tube. He was able to have bowel movements yesterday and this morning without any difficulty and we therefore advance his diet to regular but soft. He did well with this and was stable for discharge. At discharge we recommended continue use of Reglan 5 mg 3 times daily for another 5 days and Protonix 40 mg p.o. twice daily for 8 weeks. The patient may need follow-up EGDs with repeat dilation. The patient is to follow-up with his primary care physician in the next [address] Turcios from gastroenterology in the next 2 weeks for biopsy results and follow-up with relationship to his duodenal stenosis. The patient was instructed to continue regular diet but maintain soft more frequent meals to ensure passing through that dilated area. We discussed the importance of discontinuation of excessive NSAID use and to avoid all NSAIDs at this time. CEA and CA 19-9 were pending at the time of discharge. 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 Duodenal ulcer Erosive esophagitis GERD Severe malnutrition History of migraines History of tobacco abuse Physical Exam Const alert, oriented x3, no apparent distress, average body habitus and no limitations Constitutional Narrative: Middle-aged white male standing up at the bedside, appears comfortable nontoxic, very happy General Appearance: cooperative, comfortable, well kempt and well developed Orientation / Consciousness: awake Nutritional Appearance: thin HEENT normocephalic, head/scalp atraumatic, hearing grossly normal bilaterally, moist oral mucous membranes and oropharynx normal HEENT Narrative: Mallampati is 1-2, no thrush, dentition is good Eyes PERRL, EOMs intact bilaterally and conjunctivae normal Eyes Narrative: No scleral icterus Neck no lymphadenopathy, supple, no JVD and no carotid bruits Neck Narrative: Trachea midline, no thyroid enlargement Resp normal respiratory effort, no retractions, no use of accessory muscles and clear to auscultation bilaterally Auscultation: Negative for crackles, rales, rhonchi or wheezes Cardio regular rate, regular rhythm, S1 normal heart sound, S2 normal heart sound, no murmurs, no rub, no gallops, no clicks and no JVD GI normal to inspection, nondistended, normoactive bowel sounds, soft to palpation, non-tender and non-distended; Negative for hepatosplenomegaly Extremity no clubbing, cyanosis or edema Skin no rashes or lesions noted, no wounds, skin turgor normal and no jaundice Neuro oriented x3, CN's II-XII intact bilaterally, moves all extremities and no focal motor deficits Sensorium / Orientation: awake, alert, oriented to person, oriented to place and oriented to time Speech: speech normal Motor Exam: strength 5/5 throughout Psych affect normal Medical Records Data Medical Nutrition Assessment Dietitian: Malnutrition Criteria Met Start: 11/19/21 13:23 Freq: Status: Active Protocol: Document 11/19/21 13:24 [facility] (Rec: 11/19/21 13:24 [facility] [id number]) Nutrition Malnutrition Evidence of Malnutrition Exists Yes Malnutrition (severe): Acute Illness/Injury Evidenced By Suboptimal Energy Intake ( Severe),Weight Loss (Severe), Physical Changes (Moderate) Clinical Problem Acute Disease or Injury Related Malnutrition Etiology severe malnutrition r/t pt inability to consume adequate energy to meet estimated nutritional needs d/t GI dysfunction Signs/Symptoms as evidenced by pt reports frequent emesis after eating x <2 month, 17.9% wt loss x <2 month and consuming <75% of est nutritional needs x >1 month. Pt also w/ fat/muscle loss in upper body (clavicle, triceps, temporal/orbital regions, quadricep). Status Active Problem Recommendation Dietitian Recommendations/Changes As medically able, rec diet as tolerated to transitional diet Once po diet resumes, rec ensure clear 8 oz tid w/ meals Rec consider nutrition support if unable to resume po diet within 3 days to help prevent further decline in pt nutritional status. Weight / BMI Weight Weight: 71.6 kg Body Mass Index (BMI) 22.4 ABG / Lab / Microbiology Data Result Diagrams: 11/21/21 05:45 11/21/21 05:45 Laboratory: Laboratory Results - last 24 hr 11/21/21 05:45: WBC 6.7, RBC 4.36 L, Hgb 12.5 L, Hct 36.9 L, MCV 84.6, MCH 28.7, MCHC 33.9, RDW Std Deviation 37.9, RDW Coeff of Caden 12.3, Plt Count 221, MPV 9.8, Immature Gran % (Auto) 0.300, Neut % (Auto) 56.5, Lymph % (Auto) 33.0, Isabella % (Auto) 6.8, Eos % (Auto) 3.1, Baso % (Auto) 0.3, Absolute Neuts (auto) 3.8, Absolute Lymphs (auto) 2.22, Nucleated RBC % 0 11/21/21 05:45: Sodium 140, Potassium 4.0, Chloride 110 H, Carbon Dioxide 27.0, Anion Gap 3 L, BUN 6 L, Creatinine 0.66 L, Estim Creat Clear Calc 133.90, Est GFR (MDRD) Af Amer 165, Est GFR (MDRD) Non-Af 136, BUN/Creatinine Ratio 9.1 L, Glucose 117 H, Calcium 8.5 D/C Instructions Discharge Diet: No restrictions (Start with soft diet and advance as tolerated- progress slowly) Discharge Activity: Return to Normal Activity Meaningful Use Info Meaningful Use Diagnoses (Choose all that apply): None applicable Discharge Plan Admission Admit Date/Time: 11/18/21 22:21 Primary Reason for Your Visit: Abdominal Pain Attending Provider: Parul Esqueda Primary Care Provider: Leah Weathers NP Consulting Providers: Mario Miller ; Esther Robbins Instructions Additional Instructions / Restrictions: 1. Call Monday to make appointment with gastroenterology as noted below 2. Avoid NSAIDs including aspirin, ibuprofen, naproxen Discharge Orders/Prescriptions Prescriptions: New pantoprazole [Protonix] 40 mg tablet,delayed release (DR/EC) 40 mg PO BID Qty: 60 1RF metoclopramide HCl [Reglan] 5 mg tablet 5 mg PO TID Qty: 15 0RF Continued acetaminophen 500 mg Capsule 1,000 mg PO Q6H PRN (Reason: Pain) dicyclomine 20 mg tablet 20 mg PO 4X/DAY PRN PRN (Reason: abdominal cramping) Label Comments: take 1 tablet by mouth four times a day ondansetron HCl 4 mg tablet 4 mg PO Q6H PRN PRN (Reason: Nausea) Discontinued polyethylene glycol 3350 [Miralax] 17 gram Powder In Packet 17 g PO DAILY famotidine 20 mg tablet 20 mg PO DAILY PRN (Reason: GERD) Label Comments: take 1 tablet by mouth twice a day omeprazole 20 mg capsule,delayed release(DR/EC) 20 mg PO DAILY PRN (Reason: GERD) Label Comments: take 1 capsule by mouth once daily Referrals / Follow Up: Dean Turcios DO [STAFF PHYSICIAN] - Within 2 Weeks (Call Monday to make an appointment to be seen within the next 2 weeks) Leah Weathers NP, SUBMERSIBLE PILOT-C [Primary Care Provider] - Within 2 Weeks Disposition Disposition (needs filled in before D/C Order can be placed): Home, Self Care Charges/Coding Visit Charges Inpatient E&M: 26617 Disch Hosp
[2021-11-23 14:22] LABS: Carbohydrate Ag 19-9 2261 < 2 U/mL (0-35)
== END 2021-11-21 13:39 | disposition home or self-care (01) | DRG 254 ==
LOC: ED 21:06 → MS3 22:28
PROVIDERS: Internal Medicine Gastroenterology; Admitting Provider Family Medicine; Emergency Provider Emergency Medicine; PCP Nurse Practitioner Family; Visit Provider Internal Medicine
PROC: 0DJ08ZZ Inspection of Upper Intestinal Tract, Via Natural or Artificial Opening Endoscopic (ICD-10-PCS; CPT 43235; principal; 2021-11-19 12:00)
DX: K31.1 Adult hypertrophic pyloric stenosis (principal); E43 Unspecified severe protein-calorie malnutrition; K31.5 Obstruction of duodenum; K21.00 Gastro-esophageal reflux disease with esophagitis, without bleeding; G43.909 Migraine, unspecified, not intractable, without status migrainosus; E86.0 Dehydration; Z87.891 Personal history of nicotine dependence; Z68.22 Body mass index [BMI] 22.0-22.9, adult; Z90.49 Acquired absence of other specified parts of digestive tract; K26.9 Duodenal ulcer, unspecified as acute or chronic, without hemorrhage or perforation
CPT/HCPCS: 36415; 74018; 74177; 76000; 80048; 80053; 81001; 82378; 83690; 83735; 84100; 85025; 86301; 88305; 97802; 99251; 99281; J7030; Q9967; A4216; C1769; G0463; J2405